=== PATIENT | female | born 1985 | race Caucasian/White ===

== ENCOUNTER 2016-08-07 19:13 | Emergency (ER) | payer BC ==
[2016-08-07] MEDS ORDERED: predniSONE TAB* 20 MG PO ONE (19:16)
[2016-08-07] MEDS ORDERED: Ondansetron ODT TAB* 4 MG ONE (19:16)
[2016-08-07] MEDS ORDERED: EPINEPHrine AMP 1 MG/ML IM ONE (19:16)
[2016-08-07] MEDS ORDERED: Ondansetron ODT TAB* 4 MG PO ONE (19:17)
[2016-08-07] MEDS ORDERED: methylPREDNISolone SOD SUCC* 125 MG 2 ML VIAL IM ONE (19:24)
[2016-08-07] MEDS ORDERED: Metoclopramide IV* 5 MG/ML 2 ML VIAL IV ONE (19:43)
[2016-08-07] MEDS ORDERED: NS 0.9% 1000 ML* 1,000 ML IV SCH (19:45)
[2016-08-07] MEDS ORDERED: Ketorolac INJ* 30 MG/ML 1 ML VIAL IV PUSH ONE (19:50)
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
[2016-08-07 20:45] VITALS: BP 107/67
== END 2016-08-07 21:00 | disposition home or self-care (01) ==
LOC: UCEAST 19:13
DX: T78.3XXA Angioneurotic edema, initial encounter (principal); T39.8X5A Adverse effect of other nonopioid analgesics and antipyretics, not elsewhere classified, initial encounter; Y92.9 Unspecified place or not applicable; G43.909 Migraine, unspecified, not intractable, without status migrainosus; Z88.6 Allergy status to analgesic agent; Z88.5 Allergy status to narcotic agent; Z88.0 Allergy status to penicillin; Z88.2 Allergy status to sulfonamides
CPT/HCPCS: 96360; 96372; 96374; 96375; 99212; G0463; J0171; J1885; J2930; J7512

== ENCOUNTER 2016-09-13 18:16 | Emergency (ER) | payer BC ==
[2016-09-13 19:06] VITALS: BP 111/71
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
== END 2016-09-13 19:35 | disposition home or self-care (01) ==
LOC: UCEAST 18:16
DX: J02.9 Acute pharyngitis, unspecified (principal); Z88.5 Allergy status to narcotic agent; Z88.0 Allergy status to penicillin
CPT/HCPCS: 87651; 99211; G0463

== ENCOUNTER 2016-12-19 19:09 | Emergency (ER) | payer BC ==
[2016-12-19 19:15] VITALS: BP 108/67
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
== END 2016-12-19 19:47 | disposition home or self-care (01) ==
LOC: UCEAST 19:09
DX: R30.0 Dysuria (principal); R35.0 Frequency of micturition; R39.15 Urgency of urination; F17.290 Nicotine dependence, other tobacco product, uncomplicated
CPT/HCPCS: 81003; 87086; 99212; G0463

== ENCOUNTER 2017-08-01 09:17 | Emergency (ER) | payer SELFPAY ==
[2017-08-01 09:44] VITALS: BP 118/73
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
--- NOTE | 2017-08-01 11:27 | UC ---
González Guerra Elizabeth, scribed for Daria Tolliver DO on 08/01/17 at 1004 . Hand/Wrist HPI - HPI Summary HPI Summary: The patient is a 32 year old female complaining of finger pain after smashing digits 3 and 4 of her right hand in a door. She rates the pain 5/10. The patient additionally complains of some numbness in her fingers and bruising under the nail. The patient denies fever, chills, nausea, and vomiting. - History Of Current Complaint Chief Complaint: UCUpperExtremity Stated Complaint: FINGER INJURY Time Seen by Provider: 08/01/17 09:41 Hx Obtained From: Patient Hx Last Menstrual Period: murania Onset/Duration: Sudden Onset, Still Present Severity Currently: Mild Pain Intensity: 5 Character Of Pain: Throbbing Aggravating Factor(s): Movement - pressure Alleviating Factor(s): Nothing Associated Signs And Symptoms: Positive: Bruising, Numbness/Tingling. Negative : Fever - Allergies/Home Medications Allergies/Adverse Reactions: Allergies Allergy/AdvReac Type Severity Reaction Status Date / Time acetaminophen [From Vicodin] Allergy Vomiting Verified 08/01/17 09:47 codeine Allergy Vomiting Verified 08/01/17 09:47 hydrocodone [From Vicodin] Allergy Vomiting Verified 08/01/17 09:47 latex Allergy Rash Verified 08/01/17 09:47 morphine Allergy See Comment Verified 08/01/17 09:47 ondansetron Allergy See Comment Verified 08/01/17 09:48 [From Zofran (as hydrochloride)] Penicillins Allergy Hives Verified 08/01/17 09:47 Sulfa (Sulfonamide Allergy Fever Verified 08/01/17 09:47 Antibiotics) sumatriptan [From Imitrex] Allergy See Comment Verified 08/01/17 09:47 tramadol Allergy See Comment Verified 08/01/17 09:47 PMH/Surg Hx/FS Hx/Imm Hx - Additional Past Medical History Additional PMH: FIBROMYALGIA Previously Healthy: No - Surgical History Surgical History: Yes Surgery Procedure, Year, and Place: 07/24/11 . 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 2011 WISDOM TEETH - Family History Known Family History: Positive: Other - MIGRAINE, COLITIS Negative: Diabetes - Social History Alcohol Use: Rare Substance Use Type: None Smoking Status (MU): Light Every Day Tobacco Smoker Type: Shant Cessation Counseling: Patient Advised to Stop Review of Systems Constitutional: Other - NEGATIVE FEVER, NEGATIVE CHILLS Skin: Bruising - BRUISING AROUND NAILS Gastrointestinal: Other - NEGATIVE NAUSEA, NEGATIVE VOMITING Neurological: Numbness - Numbness at the tip of the 4th digit of right hand All Other Systems Reviewed And Are Negative: Yes Physical Exam - Summary Physical Exam Summary: Appearance: Well-Appearing, No Pain Distress, Well-Nourished Eyes: conjunctiva clear, no discharge ENT: Hearing grossly normal, no muffled/hoarse voice. Hearing grossly normal, normal voice. Neck: Normal, Supple Respiratory/Lung Sounds: Lungs clear, Normal breath sounds, No respiratory distress, No accessory muscle use Cardiovascular: RRR, No murmur Musculoskeletal: Subungual hematoma under 3rd fingernail of right hand, minor abrasion and mild bruising around nail bed of finger 4 of right hand. tender to palpation over the dis phalanx of the 3rd and 4th finger Neurological: Alert, muscle tone normal Psychiatric:Normal, age appropriate behavior Skin: Normal, Warm, Dry, Normal color Triage Information Reviewed: Yes Vital Signs: Initial Vital Signs Temp 98.1 F 08/01/17 09:41 Pulse 80 08/01/17 09:41 Resp 18 08/01/17 09:41 BP 118/73 08/01/17 09:41 Pulse Ox 100 08/01/17 09:41 Vital Signs Reviewed: Yes Procedures - Nail Trepanation Method of Drainage: nail cauterized Sterile Dressing Applied: Yes Finger Splint: No Diagnostics - Radiology 3rd & 4th right fingers X-ray Xray Interpretation: No Acute Changes - NO FRACTURES NOTED Radiology Interpretation Completed By: ED Physician Hand/Wrist Course/Dx - Course Course Of Treatment: The patient is a 32 year old female complaining of finger pain and bruising after smashing digits 3 and 4 of her right hand in a door. Physical exam reveals a subungual hematoma under 3rd fingernail of right hand, minor abrasion and mild bruising around nail bed of finger 4 of right hand. In the [facility] course, trepanation of the 3rd fingernail of the right hand was performed. Patient will be discharged with prescription for Keflex and follow up from PCP. The patient is agreeable with this plan. Medications reviewed. Allergies reviewed. The patient has been encouraged to quit smoking. - Differential Dx/Diagnosis Provider Diagnoses: subungual hematoma Discharge - Discharge Plan Condition: Stable Disposition: HOME Prescriptions: Cephalexin CAP* [Keflex CAP*] 500 mg PO BID #20 cap Patient Education Materials: Subungual Hematoma (ED), Paronychia (ED), Contusion in Adults (ED), Warm Compress or Soak (ED) Referrals: Rachel Reddy BUSINESS APPLICATIONS SPECIALIST [Primary Care Provider] - If Needed Additional Instructions: CEPHALEXIN: The antibiotic you've been prescribed is a member of the cephalosporin class. This type of antibiotic covers a wide variety of infections, including those of the skin, lungs, and urinary tract. It's useful for staph infections. This antibiotic is slightly similar to the penicillin family. In rare cases , a person who is allergic to penicillin will also be allergic to this medication. If you have had a severe allergic reaction to penicillin, and have not taken this antibiotic since that time, notify your doctor. Antibiotics which cover many germs ("broad spectrum" antibiotics) are more likely to cause diarrhea or "yeast" infections. Women prone to vaginal yeast problems may suffer an attack after taking this antibiotic. In infants, oral thrush (white spots "stuck" on the cheek) or yeast diaper rash may result. See your doctor if these problems occur. Call at once if you develop itching, hives , shortness of breath, or lightheadedness. ANYTIME YOU TAKE AN ANTIBIOTIC, IT IS IMPORTANT TO REPLENISH THE BODY'S SUPPLY OF "GOOD BACTERIA." YOU CAN GET GOOD BACTERIA FROM HIGH QUALITY CULTURED FOODS SUCH LOCAL YOGURT, SOUR KRAUT, JERED MUKESH, NATURALLY FERMENTED PICKLES AND PROBIOTIC DRINKS. YOU CAN ALSO GET GOOD BACTERIA FROM A PROBIOTIC SUPPLEMENT. The documentation as recorded by the González sheehan Elizabeth accurately reflects the service I personally performed and the decisions made by me, Daria Tolliver DO.
== END 2017-08-01 10:55 | disposition home or self-care (01) ==
LOC: UCEAST 09:17
DX: S60.131A Contusion of right middle finger with damage to nail, initial encounter (principal); S60.141A Contusion of right ring finger with damage to nail, initial encounter; W23.0XXA Caught, crushed, jammed, or pinched between moving objects, initial encounter; Y93.9 Activity, unspecified; Y92.9 Unspecified place or not applicable; M79.7 Fibromyalgia; Z88.5 Allergy status to narcotic agent; Z88.0 Allergy status to penicillin; Z88.2 Allergy status to sulfonamides; Z88.8 Allergy status to other drugs, medicaments and biological substances; Z88.6 Allergy status to analgesic agent; Z91.040 Latex allergy status; F17.210 Nicotine dependence, cigarettes, uncomplicated
CPT/HCPCS: 11740; 73140; 99212; G0463

== ENCOUNTER 2018-02-24 18:43 | Emergency (ER) | payer OTHER ==
--- OUTSIDE RECORDS SUMMARY | 2018-02-24 19:14 | XMS REPORT ---
:1985 External Reference #:[id number] Author Organization [facility] Address [address] [place] [address] Phone [phone] Care Team Providers Name Role Phone Selene Chau Care Team Information [facility] Aides Teacher Unavailable Selene Chau Primary Care Physician Unavailable Payers Type Date Identification Numbers Payment Provider Subscriber Commercial Policy Number: [id number] [facility] Plan Rebekah Cao PayID: [id number] [address] [place] [address] Problems Date Description Provider Status Onset: 03/06/2013 Myalgia & Myositis Unspec Eliceo Coates M.D. Active Family History Date Family Member(s) Problem(s) Comments General No early myocardial infarction or cerebrovascular accident, no colon or breast cancer Father Hypertension Mother Migraine Mother Colitis Ulcerative First Sister Bipolar Disorder First Sister Bulemia First Sister diverticulitis Second Sister Bipolar Disorder Second Sister Migraine Paternal Grandmother paternal gm chron's Social History Type Date Description Comments Marital Status Patient has a significant other Living Situation Lives with son General ic and cmc Cigarette Use Former Cigarette Smoker since son born ETOH Use Rare Smoking Patient has never smoked Exercise Type/Frequency Current Exercises regularly Allergies, Adverse Reactions, Alerts Date Description Reaction Status Severity Comments 12/06/2008 Augmentin Hives active Hives 12/06/2008 Morphine Sulfate active Migraine 12/06/2008 Lactose active 02/14/2013 Codeine gi upset active 02/14/2013 Penicillin diarrhea active 02/14/2013 Sulfa rash/fever active 03/06/2013 Latex rash active 10/03/2013 Tramadol active 08/07/2016 Sumatriptan active rash Medications Medication Date Status Form Strength Qnty SIG Indications Ordering Provider Cymbalta 02/[address] 30mg 90cap 1 by mouth Part s once a day [facility], [facility] Ondansetron 01/21 Active Tablets 4mg 40tab 1-2 by mouth Selene L. HCL s every 4-6h Kandi, as needed M.D. nausea Butalbital/Wilberto 08/21 Active Capsules 50-300-40 60cap 1-2 by mouth R51 Rachel taminophen/Caf /2016 mg s every 6 [facility], feine hours [facility] Lyrica 12/19 Active Capsules 100mg 120ca 1 by mouth M79.1 Selene L. ps four times a , day M.D. Mirena Active IUD 20mcg/24H Unknown /0000 R Multivitamin Active Tablets 1 by mouth Unknown Adult /0000 every day Gabapentin 01/21 Hx Capsules 100mg 300ca 1 to 4 Selene L. /2017 ps capsules Kandi, - four times M.D. 02/04 daily. /2017 Cymbalta 12/[address] 20mg 90cap 1 po daily Part s [facility], - SPEECH LANGUAGE PATHOLOGIST ASSISTANT 02/10 Ciprofloxacin 11/26 Hx Solution 0.3% 5ml 1 drops in H16.102 Cassandra C. HCL left eye Rey, - every 2 [employer]EN[employer] 02/10 hours awake until follow-up with ophthalmolog y Azithromycin 09/15 Hx Tablets 250mg 6tabs 2 tabs /2016 today, then [place], - 1 tab daily M.D. 12/23 for next days Propranolol 09/04 Hx Caps ER 80mg 30cap 1 by mouth G43.009 Dorothea HCL ER /2016 24HR s every day [place], - M.D. 07/21 Sumatriptan 07/31 Hx Tablets 25mg 9tabs 1 by mouth R51 Rachel Succinate at onset of [facility], - migraine, SPEECH LANGUAGE PATHOLOGIST ASSISTANT 08/07 may if migraine not 100% gone in 4 hours, by mouth Gabapentin 12/04 Hx Capsules 100mg 45cap take 1 M79.1 s capsule at [facility], - bedtime SPEECH LANGUAGE PATHOLOGIST ASSISTANT 01/02 every night /2015 by mouth may add 1 by mouth in morning Soma 06/22 Hx Tablets 250mg 60tab one tab by 724.2 s mouth three [facility], - times a day SPEECH LANGUAGE PATHOLOGIST ASSISTANT 12/04 as needed for pain Lyrica 05/21 Hx Capsules 75mg 60cap 1 by mouth s twice a day [facility], - SPEECH LANGUAGE PATHOLOGIST ASSISTANT 12/19 Lyrica 05/21 Hx Capsules 25mg 30cap 1 po qd s [facility], - SPEECH LANGUAGE PATHOLOGIST ASSISTANT 07/09 Buspirone HCL 04/16 Hx Tablets 5mg 60tab 1 by mouth 300.00 s twice a day [facility], - SPEECH LANGUAGE PATHOLOGIST ASSISTANT 05/21 Lorazepam 03/16 Hx Tablets 0.5mg 40tab 1 by mouth 300.00 s three a day [facility], - as needed SPEECH LANGUAGE PATHOLOGIST ASSISTANT 04/16 anxiety Lidocaine 01/30 Hx Patches 5% 30uni apply to 724.2 Moncho Guaman ts affected M.D. - area for 12 03/16 hours and then off for 12 hours. use as directed Meloxicam 10/03 Hx Tablets 7.5mg 30tab 1 po qd 724.2 Eliceo Owen. s Jerome Coates M.D. 12/20 Physical 10/03 Hx 1unit treatment 724.2 Eliceo Tahmina s and Jaxon, - evaluation M.D. 12/20 of low back pain, scoliosis Soma 09/28 Hx Tablets 250mg 60tab one tab po 724.2 Eliceo Owen. s tid as Jaxon, - needed for M.D. 12/20 pain Tramadol HCL 09/25 Hx Tablets 50mg 40tab one tab po 724.2 Eliceo Owen. s every 6 Jaxon, - hours prn M.D. 09/28 pain /2013 Soma 09/08 Hx Tablets 350mg 30tab 1 q every 6 Moncho Guaman s hours as M.D. - needed for 09/24 muscle spasm Medrol Dosepak 09/07 Hx Tablets 4mg 1pack use as 724.2 Eliceo . directed Jerome Coates M.D. 09/24 Lyrica 07/10 Hx Capsules 75mg 60cap 1 by mouth s twice a day Jerome Reddy 05/21 Lyrica 02/14 Hx Capsules 25mg 21cap 1 po tid s Tha - Jaci-C 02/21 Lyrica 02/14 Hx Capsules 50mg 60cap 1 po bid, s istop ref# Jaxon, - [id number] M.DTahmina 07/10 No Active 12/22 Hx Unknown Medications /2012 - 02/14 No Active 12/20 Hx Unknown Medications /2012 - 12/20 Note 12/20 Hx pt was seen in this Tha - office Jaci-C 12/22 today- al exam within normal limits, pt is healthy. No contraindica tions to present employ Keflex 08/13 Hx Capsules 250mg 30cap 1 po tid x Charmaine s 10 days Jerome Rivero-Dl 12/19 Clindamycin 11/01 Hx Capsules 300mg 30cap one tab po 682.9 Eliceo A. s tid for ten Jaxon - rachel Mcnair 12/19 Cephalexin 10/16 Hx Tablets 250mg 30tab 1 po tid 525.19 Fenton A. Jerome Peñaloza M.D. 11/01 Naproxen 10/16 Hx Tablets 500mg 30tab 1 po bid prn 525.19 Eliceo A. Jerome Peñaloza M.D. 11/01 Loratadine 09/22 Hx Tablets 10mg 10tab 1 po qd 382.9 Fenton A. Jerome Peñaloza M.D. 10/16 Azithromycin 05/21 Hx Tablets 250mg 6tabs 2 po today 462 Eliceo A. and 1 po x 4 Jaxon - rachel Mcnair 10/16 Note For Work 05/21 Hx please Eliceo . excuse from Jaxon, - work today M.DTahmina 09/22 and tomorr due to illness Diflucan 10/02 Hx Tablets 150mg 3tabs 1 po qd maricruz Fonseca 05/21 M.D. Mycolog-II 10/02 Hx Cream 30gm apply to Rachel /2010 affected von - area bid Raymundo, 05/21 M.D. Astelin 08/15 Hx Solution 137mcg/Sp 1Mdi 1-2 sprays 465.9 Selene L. ray each nostril Kandi, - bid M.D. 10/02 Tessalon 08/15 Hx Capsules 100mg 90cap 1 po tid 465.9 Selene L. Perl s Kandi, - M.D. 10/02 Nasonex 08/15 Hx Suspension 50mcg/Act 1unit 1 spray each 465.9 Selene L. s nostril Kandi, - twice daily M.D. 10/02 Note For Work 08/05 Hx please Eliceo excuse from Jaxon, - work M.D. 08/15 07/31-08/04 due to illness thanks Azithromycin 07/31 Hx Tablets 250mg 9tabs 2 po for 462 Eliceo . three days Jaxon, - and 1 po x 3 M.D. Bupropion HCL 12/06 Hx Tablets ER 150mg 60tab one tab 305.1 Fenton A. ER 12HR s daily for Jaxon, - three days M.D. 07/31 and then Clindamycin Hx Capsules 150mg 21cap 1 po tid Unknown HCL /0000 s - 11/01 Percocet Hx Tablets 5-325mg 80tab 1-2 tabs po Unknown /0000 s every 6 - hours prn 11/01 pain Doxycycline Hx Tablets 100mg 2tabs take 2 pills Unknown Hyclate /0000 - 12/20 Vitamin B /00 Hx Tablets 1 po qd Unknown Complex /0000 - 03/16 Immunizations CPT Code Status Date Vaccine Lot # [id number] Given 02/10/2018 Influenza Vac, Quadrivalent, Slit Virus, Im [id number] Vital Signs Date Vital Result Comment 02/10/2018 BP Systolic 110 mmHg BP Diastolic 74 mmHg Heart Rate 72 /min Body Temperature 97.9 F Respiratory Rate 16 /min Height 60.5 inches 5'0.50" Weight 141.00 lb BMI (Body Mass Index) 27.1 kg/m2 12/01/2017 BP Systolic 110 mmHg BP Diastolic 70 mmHg Heart Rate 68 /min Body Temperature 98.3 F Respiratory Rate 16 /min Height 60.5 inches 5'0.50" Weight 135.00 lb BMI (Body Mass Index) 25.9 kg/m2 11/26/2017 BP Systolic 102 mmHg BP Diastolic 72 mmHg Heart Rate 80 /min Body Temperature 98.1 F Height 60.5 inches 5'0.50" Weight 135.00 lb BMI (Body Mass Index) 25.9 kg/m2 10/20/2017 BP Systolic 110 mmHg BP Diastolic 68 mmHg Heart Rate 84 /min Body Temperature 97.9 F Respiratory Rate 16 /min Height 60.5 inches 5'0.50" Weight 134.12 lb BMI (Body Mass Index) 25.8 kg/m2 07/21/2017 BP Systolic 110 mmHg BP Diastolic 64 mmHg Heart Rate 84 /min Body Temperature 97.3 F Respiratory Rate 18 /min Height 60.5 inches 5'0.50" Weight 136.00 lb BMI (Body Mass Index) 26.1 kg/m2 09/04/2016 BP Systolic 110 mmHg BP Diastolic 60 mmHg Heart Rate 76 /min Body Temperature 99.2 F Respiratory Rate 16 /min Height 60.5 inches 5'0.50" Weight 138.50 lb BMI (Body Mass Index) 26.6 kg/m2 08/21/2016 BP Systolic 120 mmHg BP Diastolic 60 mmHg Heart Rate 96 /min Body Temperature 98.6 F Height 60.5 inches 5'0.50" Weight 138.50 lb BMI (Body Mass Index) 26.6 kg/m2 07/31/2016 BP Systolic 94 mmHg BP Diastolic 62 mmHg Heart Rate 76 /min Body Temperature 98.7 F Respiratory Rate 16 /min Height 60.5 inches 5'0.50" Weight 139.25 lb BMI (Body Mass Index) 26.7 kg/m2 01/03/2016 BP Systolic 118 mmHg BP Diastolic 70 mmHg Heart Rate 72 /min Body Temperature 98.7 F Respiratory Rate 18 /min Height 60.5 inches 5'0.50" Weight 130.00 lb BMI (Body Mass Index) 25.0 kg/m2 06/10/2015 BP Systolic 110 mmHg BP Diastolic 64 mmHg Heart Rate 80 /min Body Temperature 97.7 F Respiratory Rate 16 /min Height 60.5 inches 5'0.50" Weight 129.00 lb BMI (Body Mass Index) 24.8 kg/m2 12/04/2014 BP Systolic 100 mmHg BP Diastolic 60 mmHg Heart Rate 80 /min Body Temperature 98.1 F Respiratory Rate 16 /min Height 60.5 inches 5'0.50" Weight 128.00 lb BMI (Body Mass Index) 24.6 kg/m2 07/09/2014 BP Systolic 104 mmHg BP Diastolic 62 mmHg Heart Rate 96 /min Body Temperature 98.2 F Respiratory Rate 16 /min Height 60.5 inches 5'0.50" Weight 134.00 lb BMI (Body Mass Index) 25.7 kg/m2 05/21/2014 BP Systolic 110 mmHg BP Diastolic 68 mmHg Heart Rate 80 /min Body Temperature 97.5 F Respiratory Rate 18 /min Height 60.5 inches 5'0.50" Weight 132.00 lb BMI (Body Mass Index) 25.4 kg/m2 04/16/2014 BP Systolic 118 mmHg BP Diastolic 70 mmHg Heart Rate 76 /min Body Temperature 99.0 F Respiratory Rate 18 /min Height 60.5 inches 5'0.50" Weight 134.00 lb BMI (Body Mass Index) 25.7 kg/m2 03/16/2014 BP Systolic 110 mmHg BP Diastolic 68 mmHg Heart Rate 80 /min Body Temperature 97.4 F Respiratory Rate 16 /min Height 60.5 inches 5'0.50" Weight 134.00 lb BMI (Body Mass Index) 25.7 kg/m2 01/30/2014 BP Systolic 102 mmHg BP Diastolic 78 mmHg Heart Rate 78 /min Body Temperature 98.0 F Respiratory Rate 15 /min Height 60.5 inches 5'0.50" Weight 133.00 lb BMI (Body Mass Index) 25.5 kg/m2 12/20/2013 BP Systolic 122 mmHg BP Diastolic 68 mmHg Heart Rate 102 /min Body Temperature 99.1 F Respiratory Rate 16 /min Height 60.5 inches 5'0.50" Weight 132.25 lb BMI (Body Mass Index) 25.4 kg/m2 10/03/2013 BP Systolic 122 mmHg BP Diastolic 70 mmHg Heart Rate 72 /min Body Temperature 98.8 F Respiratory Rate 16 /min Height 60.5 inches 5'0.50" Weight 129.00 lb BMI (Body Mass Index) 24.8 kg/m2 09/25/2013 BP Systolic 92 mmHg BP Diastolic 62 mmHg Heart Rate 90 /min Body Temperature 96.8 F Height 60.5 inches 5'0.50" Weight 133.25 lb BMI (Body Mass Index) 25.6 kg/m2 09/07/2013 BP Systolic 116 mmHg BP Diastolic 70 mmHg Heart Rate 80 /min Body Temperature 98.9 F Respiratory Rate 16 /min Height 60.5 inches 5'0.50" Weight 134.00 lb BMI (Body Mass Index) 25.7 kg/m2 07/10/2013 BP Systolic 102 mmHg BP Diastolic 68 mmHg Heart Rate 76 /min Body Temperature 97.8 F Respiratory Rate 14 /min Height 60.5 inches 5'0.50" Weight 136.00 lb BMI (Body Mass Index) 26.1 kg/m2 03/06/2013 BP Systolic 110 mmHg BP Diastolic 68 mmHg Heart Rate 88 /min Body Temperature 99.6 F Respiratory Rate 17 /min Height 60.5 inches 5'0.50" Weight 137.00 lb BMI (Body Mass Index) 26.3 kg/m2 02/14/2013 BP Systolic 100 mmHg BP Diastolic 70 mmHg Heart Rate 88 /min Body Temperature 97.6 F Respiratory Rate 16 /min Height 60.5 inches 5'0.50" Weight 139.00 lb BMI (Body Mass Index) 26.7 kg/m2 12/20/2012 BP Systolic 102 mmHg BP Diastolic 52 mmHg Heart Rate 96 /min Body Temperature 98.2 F Height 60.5 inches 5'0.50" Weight 139.25 lb BMI (Body Mass Index) 26.7 kg/m2 11/01/2010 BP Systolic 100 mmHg BP Diastolic 70 mmHg Heart Rate 72 /min Body Temperature 98.4 F Height 60.5 inches 5'0.50" Weight 129.00 lb BMI (Body Mass Index) 24.8 kg/m2 10/16/2010 BP Systolic 120 mmHg BP Diastolic 84 mmHg Heart Rate 90 /min Body Temperature 98.3 F Height 60.5 inches 5'0.50" Weight 124.00 lb BMI (Body Mass Index) 23.8 kg/m2 09/22/2010 BP Systolic 94 mmHg BP Diastolic 66 mmHg Heart Rate 96 /min Body Temperature 97.9 F Height 60.5 inches 5'0.50" Weight 126.00 lb BMI (Body Mass Index) 24.2 kg/m2 05/21/2010 BP Systolic 104 mmHg BP Diastolic 60 mmHg Heart Rate 76 /min Body Temperature 99.4 F Height 60.5 inches 5'0.50" Weight 128.00 lb BMI (Body Mass Index) 24.6 kg/m2 10/02/2009 BP Systolic 102 mmHg BP Diastolic 64 mmHg Heart Rate 99.3 /min Body Temperature 80.0 F Height 60.5 inches 5'0.50" Weight 132.00 lb BMI (Body Mass Index) 25.4 kg/m2 08/15/2009 BP Systolic 100 mmHg BP Diastolic 68 mmHg Heart Rate 100 /min Body Temperature 98.1 F Weight 134.00 lb 07/31/2009 BP Systolic 110 mmHg BP Diastolic 80 mmHg Heart Rate 65 /min Body Temperature 102.0 F Weight 138.00 lb 12/06/2008 BP Systolic 100 mmHg BP Diastolic 60 mmHg Heart Rate 64 /min Body Temperature 98.3 F Height 60.5 inches 5'0.50" Weight 136.00 lb BMI (Body Mass Index) 26.1 kg/m2 Results Test Date Test Result H/L Range Note Laboratory test 08/25/2017 Cytology SEE RESULT BELOW 1 finding GC/Chlamydia 04/13/2017 Chlamydia Negative Negative Amplified Rna trachomatis Rna Neisseria gonorrhoeae (GC) Rna Negative Negative Laboratory test 12/19/2016 Urine Culture And SEE RESULT BELOW 2, 3 finding Sensitivities Laboratory test 08/29/2016 C Difficile PCR SEE RESULT BELOW 4 finding Laboratory test 08/26/2016 O&P: Giardia/Cryptospor SEE RESULT BELOW 5 finding Screen Complete Blood Count 07/31/2016 WBC 6.0 x10^3/UL 3.6-9.6 RBC 3.99 x10^6/UL 3.90-5.70 HGB 12.6 g/dL 12.1-17.2 HCT 37 % 36-50 MCV 93.0 fL 82.2-97.4 MCH 31.6 pg 27.6-33.3 MCHC 33.9 g/dL 33.0-35.5 RDW 12.5 % 11.6-13.7 PLT 339 x10^3/UL 150-400 MPV 6.7 fL Low 7.4-10.4 Gran # 3.8 x10^3/UL 1.5-7.2 Lymph# 1.9 x10^3/UL 0.7-4.9 Bath# 0.3 x10^3/UL 0.1-0.9 Gran % 61.0 % 42.2-75.2 Lymph % 33.2 % 20.5-51.1 Bath% 5.8 % 1.7-9.3 Comprehensive Metabolic Prof 07/31/2016 Sodium 135 mEq/L 134-149 Potassium 3.8 mEq/L 3.6-5.5 Chloride 98 mEq/L 94-112 Carbon Dioxide 26 mEq/L 21-32 Glucose 101 mg/dL 70-105 BUN 6 mg/dL 6-26 Creatinine 0.7 mg/dL 0.6-1.4 BUN/Creat Ratio 8.6 CALC 8.0-36.0 Calcium 9.1 mg/dL 8.6-10.2 Total Protein 7.2 g/dL 6.4-8.3 Albumin 4.2 g/dL 3.8-5.5 Globulin 3.0 g/dL 2.0-4.8 A/G Ratio 1.4 CALC 0.6-2.3 Alk. Phosphatase 66 U/L 30-110 Alt (SGPT) 10 U/L 7-35 Ast (Sgot) 17 U/L 5-34 Total Bilirubin 0.4 mg/dL 0.2-1.3 GFR Non- >60 ml/min/1.73m^ >=60 GFR >60 ml/min/1.73m^ >=60 Laboratory test finding 07/31/2016 Free T4 1.01 ng/dL 0.75-1.54 TSH 1.00 mIU/L 0.50-6.00 Basic Metabolic Profile 03/16/2014 Sodium 140 mEq/L 134-149 Potassium 3.5 mEq/L Low 3.6-5.5 6 Chloride 104 mEq/L 94-112 Carbon Dioxide 26 mEq/L 21-32 Glucose 95 mg/dL 70-105 BUN 9 mg/dL 6-26 Creatinine 0.6 mg/dL 0.6-1.4 BUN/Creat Ratio 15.0 CALC 8.0-36.0 Calcium 9.8 mg/dL 8.6-10.2 Laboratory test finding 03/16/2014 Free T3 2.89 pg/mL 2.00-4.90 Free T4 1.20 ng/dL 0.75-1.54 TSH 0.90 mIU/L 0.50-6.00 Complete Blood Count 03/16/2014 WBC 6.4 x10^3/UL 3.6-9.6 RBC 3.85 x10^6/UL Low 3.90-5.70 HGB 12.6 g/dL 12.1-17.2 HCT 36 % 36-50 MCV 94.0 fL 82.2-97.4 MCH 32.7 pg 27.6-33.3 MCHC 35.0 g/dL 33.0-35.5 RDW 11.5 % Low 11.6-13.7 PLT 259 x10^3/UL 150-400 MPV 7.2 fL Low 7.4-10.4 Gran # 4.3 x10^3/UL 1.5-7.2 Lymph# 1.9 x10^3/UL 0.7-4.9 Bath# 0.2 x10^3/UL 0.1-0.9 Gran % 64.6 % 42.2-75.2 Lymph % 30.9 % 20.5-51.1 Bath% 4.5 % 1.7-9.3 Iron & Iron Binding Capacity 03/16/2014 Iron 105 g/dL 50-212 7 Unsaturated Iron Binding 232 g/dL 7 Total Iron Binding Capacity 337 g/dL 250-450 7 % Iron Saturation 31 % 15-55 7 Laboratory test finding 09/07/2013 Sed Rate ([facility]) 7mm CBC Electronic ([facility]) 09/07/2013 WBC 7.4 3.6-9.6 RBC 4.28 3.90-5.70 Hemoglobin (a/CMC/CTX) 13.8 g/dL 12.1 - 17.2 Hematocrit ([facility]/CTX) 39.8 % 36.1 - 50.3 Platelets 299 10^3/ul 150-400 Lymph% 32.7 % 17.0-48.0 Mixed% 5.4 Neutrophils % 61.9 Mean Corpuscular Vol 93 82.2-97.4 Mean Corpuscular Hemoglobin 32.3 27.6-33.3 Mean Corpuscular Hemo Concen 34.7 32.0-36.0 RDW 12.2 11.6-13.7 Mean Platelet Volume 7.9 5.5-11.0 Laboratory test finding 09/07/2013 C Reactive Protein < 1.00 mg/L < 5.00 8 Comp Metabolic Panel 09/07/2013 Sodium 138 mmol/L 133-145 Potassium 4.4 mmol/L 3.7-5.6 Chloride 101 mmol/L 101-111 Co2 Carbon Dioxide 27 mmol/L 22-32 Anion Gap 10 mmol/L 2-11 Glucose 95 mg/dL 70-100 Blood Urea Nitrogen 15 mg/dL 6-24 Creatinine 0.78 mg/dL 0.51-0.95 BUN/Creatinine Ratio 19.2 8-20 Calcium 9.5 mg/dL 8.6-10.3 Total Protein 7.2 g/dL 6.4-8.9 Albumin 4.9 g/dL 3.2-5.2 Globulin 2.3 g/dL 2-4 Albumin/Globulin Ratio 2.1 1-3 Total Bilirubin 0.40 mg/dL 0.2-1.0 Alkaline Phosphatase 69 U/L 34-104 Alt 10 U/L 7-52 Ast 14 U/L 13-39 Egfr Non- 89.3 >60 Egfr 114.8 >60 9 Urinalysis 08/26/2013 Urine Color Yellow Urine Appearance Clear Urine Specific [place] 1.009 Low 1.010-1.030 Urine Esterase Negative Negative Urine Nitrate Negative Negative Urine Urobilinogen Negative E.U./dL Negative Urine Protein Negative mg/dL Negative Urine pH 7.5 5-9 Urine Blood Negative Negative Urine Ketones Negative mg/dL Negative Urine Bilirubin Negative Negative Urine Glucose Negative mg/dL Negative Laboratory test finding 05/12/2013 Vitamin B12 314 pg/mL 180-914 TSH (Thyroid Stimulating Horm) 0.68 miu/mL 0.34-5.60 Cortisol 12.6 g/dL 10 C Reactive Protein < 0.5 mg/dL Less than 0.5 Celiac Panel 05/12/2013 Immunoglobulin A 315 mg/dL 61 - 356 Tissue Transglutaminase IgA Ab <1.2 U/mL 11 Celiac Interpretation See Comment 12 Hla B27 05/12/2013 Hla B27 Negative 13 Hla B27 Interp See Comment 14 Laboratory test finding 05/12/2013 Dorina Screen Negative Negative 15 Laboratory test finding 03/06/2013 Creatine Kinase 66 U/L 26-140 Bina Pattern & Titer 03/06/2013 Homogeneous Pattern 1:160 High Note: SEE NOTE 16 Laboratory test finding 03/06/2013 Antinuclear Abs, Ifa See patterns 17 Laboratory test finding 03/06/2013 Sed Rate 13 mm ([facility]rex) CBC Electronic ([facility]) 02/14/2013 WBC 7.1 3.6-9.6 RBC 4.42 3.90-5.70 Hemoglobin ([facility]/CMC/CTX) 13.9 g/dL 12.1 - 17.2 Hematocrit ([facility]/CMC/CTX) 41.7 % 36.1 - 50.3 Platelets 295 10^3/ul 150-400 Lymph% 30.4 20.5-51.1 Mixed% 4.4 Neutrophils % 65.2 Mean Corpuscular Vol 94 82.2-97.4 Mean Corpuscular Hemoglobin 31.5 27.6-33.3 Mean Corpuscular Hemo Concen 33.4 32.0-36.0 RDW 11.7 11.6-13.7 Mean Platelet Volume 7.2 6.5-11.0 Laboratory test finding 02/14/2013 Sed Rate (a/CMC/Centrex) 8mm Comprehensive Metabolic 02/14/2013 Albumin 5.0 g/dL 3.8-5.5 Prof Alk. Phos. 89 U/L 30-110 Alt (SGPT) 10 U/L 7-35 Ast (Sgot) 17 U/L 5-34 BUN 11 mg/dL 6-26 Calcium 9.7 mg/dL 8.6-10.2 Chloride 108 mEq/L 94-112 Creatinine 0.8 mg/dL 0.6-1.4 Carbon Dioxide 25 mEq/L 21-32 Glucose 97 mg/dL 70-105 Sodium 142 mEq/L 134-149 Total Bilirubin 0.5 mg/dL 0.2-1.3 Total Protein 7.3 g/dL 6.3-8.1 Potassium 4.3 mEq/L 3.6-5.5 Globulin 2.4 g/dL 2.0-4.8 A/G Ratio 2.1 Calc 0.6-2.3 BUN/Creat Ratio 13.5 Calc 8.0-36.0 Laboratory test 02/14/2013 TSH 1.01 mIU/L 0.50-6.00 finding Cytology 08/18/2012 Cy RUN DATE: <SEE NOTE> GC/Chlamydia Amplified 08/18/2012 GC/Chlamydia Rna (SEE NOTE) 19 Rna CBC No Diff 07/23/2011 White Blood Count 14.7 CUMM High 4.8-10.8 Red Cell Count 3.72 CUMM Low 4.2-5.4 Hemoglobin 11.8 g/dL Low 12.0-16.0 Hematocrit 34 % Low 35-47 Mean Corpuscular Volume 91 um3 79-97 Mean Corpuscular Hemoglob 32 pg High 27-31 Mean Corpuscular HGB Cone 35 g/dL 32-36 Redcell Distribution WDTH 13 % 10.5-15 Platelet Count 330 CUMM 150-450 Mean Platelet Volume 7.7 um3 7.4-10.4 Type & Screen 07/23/2011 Patient Blood Type O POSITIVE Antibody Screen NEGATIVE Urinalysis W/Microscopic 02/15/2011 Ua Color YELLOW Yellow Appearance-Urine CLEAR Clear Specific [place]-Ur 1.005 Low 1.010-1.030 Esterase-Urine 3+ Negative Nitrite POSITIVE Negative Imggizvsorci-Dr-STT NEGATIVE Negative Protein-Urine TRACE Negative PH-Urine 6.0 5-9 Blood-Urine 2+ Negative Ketones-Urine NEGATIVE Negative Bilirubin-Ur NEGATIVE Negative Glucose-Urine NEGATIVE Negative WBC-Urine TNTC 0-5 RBC-Urine 0-2 0-2 Epith Cells-Ur FEW None Bacteria-Urine 2+ None Urine Culture & Sensitivi 02/15/2011 Urine Culture ESCHERICHIA COLI 20 Sensitivi Sensitivities For Urine 02/15/2011 Ampicillin <=2 Culture Amikacin <=2 Ciprofloxacin <=0.25 Ceftriaxone <=1 Cefazolin <=4 Nitrofurantoin <=16 Gentamicin <=1 Imipenem <=1 Levofloxacin <=0.12 Trimeth-Sulfa <=20 Ceftazidime <=1 Tigecycline <=0.5 Laboratory test finding 05/21/2010 Throat - Beta Strep [facility] negative@48hrs Quickstrep NEGATIVE Negative Laboratory test finding 07/31/2009 Quickstrep NEG Negative Throat - Beta Strep Fma negative@48hrs 1 SEE RESULT BELOW Name: REEBKAH CAO : [address]: Shad Bowles MD Acct: [id number] Unit: [id number] AGE: 32 Location: [facility] Re08/25/17 SEX: F Status: REG REF SPEC: [id number] BRANDEN: 08/25/17-[address]: Shda Bowles MD REQ: [id number] RECD: 08/25/17 STATUS: ERVIN BASSETT DR: Rachel Reddy 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 Ectocervical/Endocervical Specimen Adequacy: Satisfactory of evaluation Transformation zone component identified Patient Information: HPV: High risk HPV RNA testing regardless of pap results. Actual Specimen Date: 08/25/17 Last Menstrual Date: 06/07/17 Date of Last Specimen: 06/01/16 Date Time Test Result Flag (u) Normal Range 08/25/17 1212 @ HPV RNA Negative Negative @ @ The high-risk HPV types detected by the assay include: 16, @ 18, 31, 33, 35, 39, 45, 51, 52, 56, 58, 59, 66, and 68. Signed (signature on file) Parmjit JOMAR Ramos (ASCP) 08/27 1002 This Pap test was evaluated with the assistance of the ThinPrep Test Imaging System. Due to cytologic findings at the finished carpet inspector microscope, comprehensive manual rescreening by a Pattern Maker may be required. The Pap Smear is a screening test designed to aid in the detection of premalignant and malignant conditions of the uterine cervix. It is not a diagnostic procedure and should not be used as the sole means of detecting cervical cancer. Both false- positive and false- negative reports do occur. Depending on your risk status, a Pap smear should be obtained and evaluated every 1-3 years. END OF REPORT DEPARTMENT OF PATHOLOGY, [address] [place] [address] Merrick Dewitt M.D. Director [facility] # [id number] 2 [id number] 3 SEE RESULT BELOW Name: REBEKAH CAO : [address]: Angelica Harrison MD Acct: [id number] Unit: [id number] AGE: 31 Location: [facility] Re12/19/16 SEX: F Status: DEP ER SPEC: [id number] BRANDEN: 12/19/16-[address] [facility] [address]: Angelica Harrison MD REQ: [id number] RECD: 12/20/16-142 STATUS: KEESHA BASSETT DR: Selene Chau MD _ SOURCE: URINE SPDESC: ORDERED: Urine Culture COMMENTS: [id number] Procedure Result Reported Site Urine Culture Final 12/21/16- 1223 ML No Growth (<1,000 CFU/mL) * ML - MAIN LAB ([facility]) . END OF REPORT * ML=Testing performed at Main Lab DEPARTMENT OF PATHOLOGY, [address] [place] [address] Merrick Dewitt M.D. Director CHRISTINE # [id number] 4 SEE RESULT BELOW Name: REBEKAH CAO : [address]: Lorenzo Stanley MD Acct: [id number] Unit: [id number] AGE: 31 Location: [facility] Re08/29/16 SEX: F Status: REG REF SPEC: [id number] BRANDEN: 08/29/[address] [facility] [address]: Lorenzo Stanley MD REQ: [id number] RECD: 08/29/16 STATUS: KEESHA BASSETT DR: Rachel Reddy [employer] _ SOURCE: STOOL SPDESC: ORDERED: Nemo bean PCR Procedure Result Reported Site Stool Specimen Description Final 08/29/16- 0907 ML Stool Color Brown Stool Form Nonformed Stool Consistency Pasty Mucoid C. difficile PCR Final 08/29/16- 56 ML Organism 1 027 Presumptive NEGATIVE Organism 2 Toxigenic C.diff NEGATIVE * ML - MAIN LAB ([facility]1) . END OF REPORT * ML=Testing performed at Main Lab DEPARTMENT OF PATHOLOGY, [address] [place] [address] Merrick Dewitt M.D. Director [facility] # [id number] 5 SEE RESULT BELOW Name: REBEKAH CAO : [address]: Rachel Reddy NP Acct: [id number] Unit: [id number] AGE: 31 Location: [facility] Re08/26/16 SEX: F Status: REG REF SPEC: [id number] BRANDEN: 08/26/16-[address] [facility] [address]: Rachel Reddy NP REQ: [id number] RECD: 08/26/16 STATUS: COMP _ SOURCE: STOOL SPDC: ORDERED: O P: Giar/Crypt Procedure Result Reported Site O P: Giardia/Cryptospor Screen Final 08/27/16- 1141 ML Organism 1 Neg Cryptosporidium/Giardia Giardia and cryptosporidium antigen testing performed by enzyme immunoassay. If patient is immunocompromised or has traveled to or is from a developing country, a full ova and parasite exam with microscopic (OPMIC) is recommended. All samples will be held one month in case full ova and parasite testing is requested. Contact the Microbiology Department at [phone]. TEST LIMITATIONS: As with all diagnostic procedures, the results obtained should be used in conjunction with other clinical information available the physician, including confirmation by another method. Negative results can occur in samples containing antigen below lower limits of detection of the assay. One negative specimen does not rule out the possibility of a parasitic infection. To improve detection it is recommended that three specimens be collected on separate days over a period of not more than seven days. The use of colonic washes, aspirates or other diluted sample types has not been established and could affect the performance of the assay. Stool samples contaminated with an oily or particulate base (eg. Barium, mineral oil etc.) could interfere with the test and are not recommended. CONTINUED ON NEXT PAGE * ML=Testing performed at Main Lab DEPARTMENT OF PATHOLOGY, [address] [place] [address] Merrick Dewitt M.D. Director [facility] # [id number] Patient: KILEYLIVA [id number] (Continued) Specimen: [id number] Collected: 08/26/16 Received: 08/26/16-1012 (Continued) Procedure Result Reported Site O P: Giardia/Cryptospor Screen Final (continued) 08/27/161140 * ML - MAIN LAB ([facility]) . END OF REPORT * ML=Testing performed at Main Lab DEPARTMENT OF PATHOLOGY, [address] [place] [address] Merrick Dewitt M.D. Director [facility] # [id number] 6 RESULTS VERIFIED BY REPEAT ANALYSIS 7 1SST 8 Acute inflammation: >10.00 9 Because ethnic data is not always readily available, this report includes an eGFR for both -Americans and non- Americans. The National Kidney Disease Education Program (NKDEP) does not endorse the use of the MDRD equation for patients that are not between the ages of 18 and 70, are , have extremes of body size, muscle mass, or nutritional status, or are non- or non-. According to the National Kidney Foundation, irrespective of diagnosis, the stage of the disease is based on the level of kidney function: Stage Description GFR(mL/min/1.73 m(2)) 1 Kidney damage with normal or decreased GFR 90 2 Kidney damage with mild decrease in GFR 60-89 3 Moderate decrease in GFR 30-59 4 Severe decrease in GFR 15-29 5 Kidney failure <15 (or dialysis) 10 AM Cortisol 8.7-22.4 PM Cortisol Less than 10 11 -- REFERENCE VALUE -- <4.0 (Negative) Test Performed by: [address] [place] [address] Electrical Contractor: Elias Arreguin III, M.D. 12 Negative serology. Celiac disease unlikely. However, approximately 10% of patients with celiac disease are seronegative. Also, patients who are already adhering to a gluten-free diet may be seronegative. If celiac disease is highly clinically suspected, consider HLA-DQ typing. Test Performed by: [facility] [address] Electrical Contractor: Elias Arreguin III, M.D. 13 -- REFERENCE VALUE -- Not Applicable 14 RESULT: HLA-B27 antigen was not detected. Method: Flow Cytometry Test Performed by: [facility] [address] Electrical Contractor: Elias Arreguin III, M.D. 15 The above DORINA screen is designed for the detection of antibodies to extractable nuclear antigen (DORINA) in human serum. It is a combination test for the detection of antibodies to MEDICAL DEVICE ENGINEER, Sm, SS-A (Ro), and SS-B (La) nuclear antigens. 16 A positive BINA result may occur in healthy individuals or be associated with a variety of diseases. See interpre- tation below: Pattern Antigen Detected Suggested Disease Association Homogeneous DNA(ds,ss,), High titers - SLE (Smooth) Histone Speckled Sm, MEDICAL DEVICE ENGINEER, SCL-70, SLE,MCTD,Scleroderma,Sjogrens SS-A/SS-B Nucleolar SCL-70, PM-1/SCL High titers Scleroderma Poly- myositis/Scleroderma Overlap Centromere Centromere PSS w/Crest syndrome variable 17 Negative <1:80 Borderline 1:80 Positive >1:80 18 RUN DATE: 08/19/12 [facility] LAB LIVE PAGE 1 RUN TIME: [address], [place] [address] Specimen Inquiry Name: KILEYREBEKAH Velasco : [address]: Kierra Connell NP Acct: [id number] Unit: [id number] AGE: 27 Location: [facility] Re08/18/12 SEX: F Status: REG REF SPEC: [id number] BRANDEN: 08/18/12-[address]: Kierra Connell NP REQ: [id number] RECD: 08/18/12761 STATUS: SOUT _ ORDERED: IMAGE ANALYSIS FINAL DIAGNOSIS Negative for Intraepithelial lesion or Malignancy A. Ectocervical/Endocervical Specimen Adequacy: Satisfactory of evaluation Transformation zone component not identified Patient Information: HPV: Thin Layer Pap Test only (NO HPV TESTING) Actual Specimen Date: 08/18/12 LMP If Unknown: unknown ?: N Post Menopausal?: N Hysterectomy?: N Previous Abnormal Pap Smears?:N Signed (signature on file) Nadia Tafoya JOMAR (ASCP) 08/19/12 1253 This Pap test was evaluated with the assistance of the ThinPrep Test Imaging System. Due to cytologic findings at the finished carpet inspector microscope, comprehensive manual rescreening by a Pattern Maker may be required. The Pap Smear is a screening test designed to aid in the detection of premalignant and malignant conditions of the uterine cervix. It is not a diagnostic procedure and should not be used as the sole means of detecting cervical cancer. Both false- positive and false- negative reports do occur. Depending on your risk status, a Pap smear shoudl be obtained and evaluated every 1-3 years. END OF REPORT * ML=Testing performed at Main Lab DEPARTMENT OF PATHOLOGY, [facility] [address] [place], [place] [address] Merrick Dewitt M.D. Director [facility] Permit #[id number] RUN DATE: 08/23/12 [facility] [place] [facility] LAB LIVE PAGE 1 RUN TIME: [address] [facility] [address] [place], [place] [address] Specimen Inquiry Name: REBEKAH CAO : [address]: Kierra Connell NP Acct: [id number] Unit: [id number] AGE: 27 Location: [facility] Re08/18/12 SEX: F Status: REG REF SPEC: [id number] BRANDEN: 08/18/12-[address]: Kierra Connell NP REQ: [id number] RECD: 08/18/12 STATUS: COMP _ SOURCE: AIME SPDESC: ORDERED: GC/Chlam RNA QUERIES: Medent Number [id number] Procedure Result Verified Site Chlamydia Trachomatis RNA Final 08/23/12- 1504 ML NEGATIVE for Chlamydia trachomatis rRNA GC (N. gonorrhoeae) RNA Final 08/23/12- 1505 ML NEGATIVE for Neisseria gonorrhoeae rRNA A negative result does not preclude the presence of a C. trachomatis or N. gonorrhoeae infection because results are dependent on adequate specimen collection, absence of inhibitors, and sufficient rRNA to be detected. Test results may be affected by improper specimen collection, improper storage, technical error, or specimen mixup. Limitations of the Procedure: The Aptima Combo 2 Assay is not intended for the evaluation of suspected sexual abuse or for other medico-legal indications. For those patients for whom a false positive result may have adverse psychosocial impact, the [facility] recommends retesting by a method using an alternate technology. Therapeutic failure or success cannot be determined with the Aptima Combo 2 Assay since nucleic acid may persist following appropriate antimicrobial therapy. Results from the Aptima Combo 2 Assay should be interpreted in conjunction with other laboratory and clinical data available to the clinican. CONTINUED ON NEXT PAGE * ML=Testing performed at Main Lab DEPARTMENT OF PATHOLOGY, [facility] [address] [place], [place] [address] Merrick Dewitt M.D. Director [facility] Permit #[id number] RUN DATE: 08/23/12 [facility] [place] [facility] LAB LIVE PAGE 2 RUN TIME: [address] [facility] [address] [place], [place] [address] Specimen Inquiry Patient: REBEKAH CAO [id number] (Continued) Specimen: [id number] Collected: 08/18/12-1031 Received: 08/18/12-1613 (Continued) Procedure Result Verified Site GC (N. gonorrhoeae) RNA Final (continued) 08/23/12- 1505 Performance characteristics for detecting C. trachomatis and N. gonorrhoeae are derived from high prevalence populations. Positive results in low prevalence populations should be interpreted carefully with the understanding that the likelihood of a false positive may be higher than a true positive. END OF REPORT * ML=Testing performed at Main Lab DEPARTMENT OF PATHOLOGY, [address] [place] [address] Merrick Dewitt M.D. Director [facility] Permit #[id number] 20 >100^>100,000 ORGANISMS/ML (MANY)^CCU Procedures Description No Information Encounters Type Date Location Provider CPT E/M Dx Office Visit 12/01/2017 9:30a [facility] Rachel Reddy, [facility] [address] M79.7 Office Visit 11/26/2017 4:15p [facility] Office Cassandra Le, [employer] [address] H16.102 Office Visit 10/20/2017 8:00a [facility] Rachel Reddy, [facility] [address] M79.7 G47.00 G43.009 Office Visit 07/21/2017 10:45a [facility] Office Rachel Reddy, [facility] [address] M79.7 G43.009 Z00.01 Office Visit 09/04/2016 4:40p [facility] Dorothea Liao M.D. 65342 G43.009 M79.7 Office Visit 08/21/2016 3:30p [facility] Office Rachel Reddy, [facility] [address] R51 K92.1 M79.7 Office Visit 07/31/2016 10:45a [facility] Rachel Reddy, [facility] [address] R51 M79.7 Office Visit 01/03/2016 1:30p [facility] Office Rachel Reddy, [facility] [address] G47.00 F43.0 M79.7 Office Visit 06/10/2015 9:30a [facility] Office Rachel Reddy, [facility] [address] M79.1 F41.9 Office Visit 12/04/2014 8:45a Main Office Rachel Reddy, [facility] [address] 729.1 Office Visit 07/09/2014 8:30a [facility] Office Rachel Reddy, [facility] [address]774 729.1 300.00 Office Visit 05/21/2014 8:00a [facility] Rachel Reddy, [facility] [address] 300.00 729.1 Office Visit 04/16/2014 10:30a [facility] Office Rachel Reddy, [facility] [address] 300.00 Office Visit 03/16/2014 2:00p [facility] Rachel Reddy, [facility] [address] 300.00 Office Visit 01/30/2014 11:40a [facility] Moncho Guaman M.D. 33312 724.2 Office Visit 12/20/2013 3:40p Main Office Moncho Guaman M.D. 10044 724.2 Office Visit 10/03/2013 2:50p [facility] Eliceo Coates M.D. 52688 724.2 Office Visit 09/25/2013 11:10a [facility] Office Eliceo Coates M.D. 07882 724.2 Office Visit 09/07/2013 3:00p Main Office Eliceo Coates M.D. 67352 724.2 729.1 Office Visit 07/10/2013 8:50a [facility] Office Eliceo Coates M.D. 77140 729.1 Office Visit 03/06/2013 11:40a [facility] Office Eliceo Coates M.D. 18012 729.1 Office Visit 02/14/2013 9:00a Main Office Lena LudwigJaci marie-C 52633 729.1 Office Visit 12/20/2012 9:15a [facility] Office Lena LudwigJaci marie-C 30371 V70.5 Office Visit 11/01/2010 11:00a Main Office Eliceo Coates M.D. 40778 682.9 Office Visit 10/16/2010 7:40p Main Office Eliceo Coates M.D. 32349 525.19 Office Visit 09/22/2010 10:20a [facility] Office Eliceo Coates M.D. 58125 382.9 Office Visit 05/21/2010 2:00p [facility] Office Eliceo Coates M.D. 68331 462 Office Visit 10/02/2009 1:20p Main Office Rachel Guillen 52626 616.10 Xu Office Visit 08/15/2009 2:30p [facility] Office Selene Chau M.D. 20505 465.9 305.1 Office Visit 07/31/2009 10:30a [facility] Office Eliceo Coates M.D. 39309 462 Office Visit 12/06/2008 9:00a Main Office Eliceo Coates M.D. 35047 729.1 305.1 Plan of Care Future Appointment(s):08/10/2018 4:30 pm - DAVID Clinton at [facility] Usxixr7502/22/2018 2:00 pm - Selene Chau M.D. at Main Mppqyz7802/10/2018 - Rachel Reddy, FNPM79.7 QuitgrbxmlsjS71.00 Insomnia, [id number] Encounter for immunizationAllNew Medication:Cymbalta 30 mgComments:~B_~U_ Medication Management~b_~u_ Patient Understands medications he 's taking? Yes No Are there Barriers to Adherence? Yes No Has the patient been asked about herbal supplements and therapies, and OTC meds? Yes No As always, we strongly encourage a healthy diet and makingphysical activity a part of your every day life. If you have questions about how or where to start, please contact the office.
[2018-02-24 20:15] LABS: ABS Basophils 0.1 10^3/ul (0-0.2); ABS Eosinophils 0.2 10^3/ul (0-0.6); ABS Lymphocytes 2.9 10^3/ul (1.0-4.8); ABS Monocytes 0.7 10^3/ul (0-0.8); ABS Neutrophils 5.3 10^3/ul (1.5-7.7); ABS Nucleated RBC 0 10^3/ul; Hematocrit 38 % (35-47); Hemoglobin 12.9 g/dl (12.0-16.0); Lymphocyte % 31.9 % (25-47); Mean Corpuscular HGB Conc 34 g/dl (31-36); Mean Corpuscular Hemoglobin 32 pg (27-31); Mean Corpuscular Volume 93 fL (80-97); Mean Platelet Volume 8.6 um3 (7.4-10.4); Nucleated Red Blood Cells % 0.1; Platelet Count 303 10^3/ul (150-450); Red Blood Count 4.05 10^6/ul (4.00-5.40); Red Cell Distribution Width 12 % (10.5-15); White Blood Count 9.2 10^3/ul (3.5-10.8)
[2018-02-24 20:23] LABS: Urine Appearance Clear; Urine Blood 1+ (Negative); Urine Color Straw; Urine Ketones Negative (Negative); Urine Protein Negative (Negative); Urine Red Blood Cell Trace(0-2/hpf) (Absent); Urine Specific Gravity 1.003 (1.010-1.030); Urine Urobilinogen Negative (Negative); Urine White Blood Cell Trace(0-5/hpf) (Absent)
[2018-02-24] MEDS ORDERED: Acetaminophen TAB* 325 MG PO ONE (22:34)
[2018-02-24] MEDS ORDERED: Promethazine TAB* 25 MG PO ONE (22:35)
--- NOTE | 2018-02-25 00:04 | RAD ---
EXAM: US , Transvaginal CLINICAL HISTORY: 32 years old, female; Signs and symptoms; Lmp or gestational age (in weeks): Lmp 01/10/2018 6w3d; Antepartum complications; Bleeding; ; Prior surgery; Surgery date: 6+ months; Surgery type: 2011; Patient HX: Bleeding w/ llq and back pain; Additional info: 6 weks preg, llq pain, + bleeding TECHNIQUE: Real-time transvaginal obstetrical ultrasound of the maternal pelvis and a first trimester with image documentation. Transvaginal imaging was used for better evaluation of the fetus and adnexa. COMPARISON: No relevant prior studies available. FINDINGS: Gestation: Gestational sac is identified with measurements corresponding to a gestational age of 5 weeks, 1 day. pole is not identified at this early time. Uterus/cervix: The uterus measures approximately 8.8 x 3.5 x 4.4 cm. Endometrial echo measures 8 mm in thickness. No myometrial mass. Ovaries: The maternal right ovary measures approximately 2.7 x 3.3 x 2.9 cm. Right ovarian cyst is present measuring 2.1 x 2.0 x 2.1 cm. The maternal left ovary measures approximately 2.3 x 2.6 x 1.4 cm. No mass. Free fluid: No free fluid. IMPRESSION: Gestational sac is identified with measurements corresponding to a gestational age of 5 weeks, 1 day. Right ovarian cyst. To contact [facility] with a general question: Operations Center - [phone] For direct physician to physician contact: Physician Hotline - [phone] [facility] ([facility] Facility ID #[id number])
--- NOTE | 2018-02-25 00:56 | ED ---
Abdominal Pain/Female - HPI Summary HPI Summary: Patient with history of 6 weeks complains of left lower quadrant pain radiating to bilateral lower back pain starting at 5:30 PM today. Patient states pain described as cramping and intense, accompanied with very mild vaginal bleeding, mild nausea. Denies fever, cough, sore throat, CP, SOB, V/D, change in urine, change in BM, vaginal discharge or vaginal pain. Medical history is fibromyalgia, migraine. . - History of Current Complaint Chief Complaint: EDAbdPain Stated Complaint: 6 WKS PREG/LT SIDE AND BACK PAIN/SPOTTING Time Seen by Provider: 02/24/18 22:23 Hx Obtained From: Patient Hx Last Menstrual Period: murania Onset/Duration: Sudden Onset Timing: Constant Severity Initially: Moderate Severity Currently: Moderate Pain Intensity: 5 Pain Scale Used: 0-10 Numeric Location: Discrete At: LLQ Radiates: Yes Radiates to: Back Character: Cramping Aggravating Factor(s): Nothing Alleviating Factor(s): Nothing Associated Signs and Symptoms: Positive: Back Pain, Vaginal Bleeding, Nausea Allergies/Adverse Reactions: Allergies Allergy/AdvReac Type Severity Reaction Status Date / Time codeine Allergy Vomiting Verified 02/24/18 19:07 hydrocodone [From Vicodin] Allergy Vomiting Verified 02/24/18 19:07 latex Allergy Rash Verified 02/24/18 19:07 morphine Allergy See Comment Verified 02/24/18 19:07 ondansetron Allergy See Comment Verified 02/24/18 19:07 [From Zofran (as hydrochloride)] Penicillins Allergy Hives Verified 02/24/18 19:07 Sulfa (Sulfonamide Allergy Fever Verified 02/24/18 19:07 Antibiotics) sumatriptan [From Imitrex] Allergy See Comment Verified 02/24/18 19:07 tramadol Allergy See Comment Verified 02/24/18 19:07 Home Medications: Home Medications Folic Acid TAB* 02/24/18 [History] PMH/Surg Hx/FS Hx/Imm Hx Endocrine/Hematology History: Denies: Hx Anticoagulant Therapy, Hx Diabetes Cardiovascular History: Denies: Hx Cardiac Arrest, Hx Hypertension, Hx Pacemaker/ICD History: Denies: Hx Dialysis, Hx Renal Disease Musculoskeletal History: Denies: Hx Scoliosis Sensory History: Denies: Hx Hearing Aid Neurological History: Reports: Hx Migraine Denies: Hx Headaches, Other Neuro Impairments/Disorders Psychiatric History: Denies: Hx Panic Disorder - Surgical History Surgery Procedure, Year, and Place: 07/24/11 . 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 2011 WISDOM TEETH Infectious Disease History: No Infectious Disease History: Denies: Traveled Outside the [place] in Last 30 Days - Family History Known Family History: Positive: Other - MIGRAINE, COLITIS Negative: Diabetes - Social History Alcohol Use: None Substance Use Type: Reports: None Smoking Status (MU): Light Every Day Tobacco Smoker Type: eCigarettes Review of Systems Constitutional: Negative Eyes: Negative ENT: Negative Cardiovascular: Negative Respiratory: Negative Positive: Abdominal Pain, Nausea Genitourinary: Negative Musculoskeletal: Negative Skin: Negative Neurological: Negative Psychological: Normal All Other Systems Reviewed And Are Negative: Yes Physical Exam - Summary Physical Exam Summary: Tenderness in left lower quadrant. Abdominal exam otherwise unremarkable. Triage Information Reviewed: Yes Vital Signs On Initial Exam: Initial Vitals Temp Pulse Resp BP Pulse Ox 98.0 F 119 18 118/78 99 02/24/18 19:03 02/24/18 19:03 02/24/18 19:03 02/24/18 19:03 02/24/18 19:03 Vital Signs Reviewed: Yes Appearance: Positive: Well-Appearing Skin: Positive: Warm Head/Face: Positive: Normal Head/Face Inspection Eyes: Positive: Normal Neck: Positive: Supple Respiratory/Lung Sounds: Positive: Clear to Auscultation Cardiovascular: Positive: Normal Abdomen Description: Positive: Other: Musculoskeletal: Positive: Normal Neurological: Positive: Normal Psychiatric: Positive: Normal AVPU Assessment: Alert - [place] Coma Scale Best Eye Response: 4 - Spontaneous Best Motor Response: 6 - Obeys Commands Best Verbal Response: 5 - Oriented Coma Scale Total: 15 Diagnostics - Vital Signs Vital Signs Temp Pulse Resp BP Pulse Ox 02/25/18 00:05 85 124/83 95 02/25/18 00:00 89 96 02/24/18 23:41 93 95 02/24/18 22:35 100 124/82 99 02/24/18 22:34 99 100 02/24/18 21:06 98.4 F 102 16 124/74 98 02/24/18 19:03 98.0 F 119 18 118/78 99 - Laboratory Lab Results: Lab Results 02/24/18 02/24/18 02/24/18 Range/Units 20:01 20:01 20:08 WBC 9.2 (3.5-10.8) 10^3/ul RBC 4.05 (4.00-5.40) 10^6/ul Hgb 12.9 (12.0-16.0) g/dl Hct 38 (35-47) % MCV 93 (80-97) fL MCH 32 H (27-31) pg MCHC 34 (31-36) g/dl RDW 12 (10.5-15) % Plt Count 303 (150-450) 10^3/ul MPV 8.6 (7.4-10.4) um3 Neut % (Auto) 57.9 (38-83) % Lymph % (Auto) 31.9 (25-47) % [place] % (Auto) 7.5 H (0-7) % Eos % (Auto) 2.0 (0-6) % Baso % (Auto) 0.7 (0-2) % Absolute Neuts (auto) 5.3 (1.5-7.7) 10^3/ul Absolute Lymphs (auto) 2.9 (1.0-4.8) 10^3/ul Absolute Monos (auto) 0.7 (0-0.8) 10^3/ul Absolute Eos (auto) 0.2 (0-0.6) 10^3/ul Absolute Basos (auto) 0.1 (0-0.2) 10^3/ul Absolute Nucleated RBC 0 10^3/ul Nucleated RBC % 0.1 Sodium 137 (135-145) mmol/L Potassium 3.4 L (3.5-5.0) mmol/L Chloride 104 (101-111) mmol/L Carbon Dioxide 27 (22-32) mmol/L Anion Gap 6 (2-11) mmol/L BUN 6 (6-24) mg/dL Creatinine 0.65 (0.51-0.95) mg/dL Est GFR ( Amer) 129.5 (>60) Est GFR (Non-Af Amer) 107.0 (>60) BUN/Creatinine Ratio 9.2 (8-20) Glucose 99 (70-100) mg/dL Calcium 9.5 (8.6-10.3) mg/dL Beta HCG, Quant 1852.00 mIU/mL Urine Color Straw Urine Appearance Clear Urine pH 6.0 (5-9) Ur Specific [place] 1.003 L (1.010-1.030) Urine Protein Negative (Negative) Urine Ketones Negative (Negative) Urine Blood 1+ A (Negative) Urine Nitrate Negative (Negative) Urine Bilirubin Negative (Negative) Urine Urobilinogen Negative (Negative) Ur Leukocyte Esterase Negative (Negative) Urine WBC (Auto) Trace(0-5/hpf) (Absent) Urine RBC (Auto) Trace(0-2/hpf) (Absent) Ur Squamous Epith Cells Present A (Absent) Urine Bacteria 1+ A (Absent) Urine Glucose Negative (Negative) Result Diagrams: 02/24/18 20:01 02/24/18 20:01 Lab Statement: Any lab studies that have been ordered have been reviewed, and results considered in the medical decision making process. - Ultrasound No standard instances Ultrasound Interpretation: No Acute Changes - Gestational sac, gestational age of 5 weeks 1 day. Right ovarian cyst. No mention report of ectopic. No free fluid. Abdominal Pain Fem Course/Dx - Course Course Of Treatment: Patient with history of 6 weeks complains of left lower quadrant pain radiating to bilateral lower back pain starting at 5:30 PM today. Patient states pain described as cramping and intense, accompanied with very mild vaginal bleeding, mild nausea. Denies fever, cough, sore throat, CP, SOB, V/D, change in urine, change in BM, vaginal discharge or vaginal pain. Medical history is fibromyalgia, migraine. . Physical exam:Tenderness in left lower quadrant. Abdominal exam otherwise unremarkable. Vital signs within normal limits. Labs unremarkable. Ultrasound positive for gestational sac 5 weeks 1 day. Patient has appointment with [facility] next Wednesday. Rx for Phenergan. Tylenol for abdominal pain. Patient understands and approves of plan. - Diagnoses Provider Diagnoses: , Left sided abdominal pain, Vaginal spotting Discharge - Sign-Out/Discharge Documenting (check all that apply): Patient Departure - Discharge Plan Condition: Stable Disposition: HOME Prescriptions: Promethazine TAB* [Phenergan TAB*] 25 mg PO Q8H PRN 5 Days #15 tab PRN Reason: Nausea Patient Education Materials: (ED), Abdominal Pain in (ED) Referrals: Rachel Reddy NP [Primary Care Provider] - Additional Instructions: Follow-up with your [facility] [facility] appointment on Wednesday of next week for further evaluation. Return to the ED for any new or worsening symptoms. - Billing Disposition and Condition Condition: STABLE Disposition: Home
[2018-02-25 01:12] VITALS: BP 123/89
== END 2018-02-25 01:10 | disposition home or self-care (01) ==
LOC: ED 18:43
DX: O26.891 Other specified pregnancy related conditions, first trimester (principal); Z3A.01 Less than 8 weeks gestation of pregnancy; R10.32 Left lower quadrant pain; O34.81 Maternal care for other abnormalities of pelvic organs, first trimester; N83.209 Unspecified ovarian cyst, unspecified side; M79.7 Fibromyalgia; O99.331 Smoking (tobacco) complicating pregnancy, first trimester; F17.290 Nicotine dependence, other tobacco product, uncomplicated; Z88.5 Allergy status to narcotic agent; Z88.2 Allergy status to sulfonamides; Z88.8 Allergy status to other drugs, medicaments and biological substances
CPT/HCPCS: 36415; 76817; 80048; 81003; 81015; 84702; 85025; 87086; 99284; A9270-GY

== ENCOUNTER 2018-10-19 20:40 | Emergency (ER) | payer SELFPAY ==
[2018-10-19 20:56] VITALS: BP 130/53
[2018-10-19] MEDS ORDERED: Acetaminophen TAB* 325 MG PO ONE (21:02)
--- NOTE | 2018-10-19 21:21 | ED ---
Back Pain - HPI Summary HPI Summary: 33 yr old female with the complaint of fever for three days that has been getting harder to control. The patient has had left flank pain that is severe. She has pain that is severe at times and radiates around the front. She has had some associated Nausea and vomiting. She denies diarrhea. She has not had urinary symptoms. No runny nose, cough or sore throat. She had her last period a week ago. - History of Current Complaint Chief Complaint: UCGU Stated Complaint: FEVER,LOW BACK PAIN Time Seen by Provider: 10/19/18 20:59 Hx Last Menstrual Period: October 13 Pain Intensity: 6 - Allergies/Home Medications Allergies/Adverse Reactions: Allergies Allergy/AdvReac Type Severity Reaction Status Date / Time codeine Allergy Vomiting Verified 10/19/18 20:56 hydrocodone [From Vicodin] Allergy Vomiting Verified 10/19/18 20:56 latex Allergy Rash Verified 10/19/18 20:56 morphine Allergy See Comment Verified 10/19/18 20:56 ondansetron Allergy See Comment Verified 10/19/18 20:56 [From Zofran (as hydrochloride)] Penicillins Allergy Hives Verified 10/19/18 20:56 Sulfa (Sulfonamide Allergy Fever Verified 10/19/18 20:56 Antibiotics) sumatriptan [From Imitrex] Allergy See Comment Verified 10/19/18 20:56 tramadol Allergy See Comment Verified 10/19/18 20:56 PMH/Surg Hx/FS Hx/Imm Hx Endocrine/Hematology History: Reports: Hx Anemia - HX OF IN THE PAST Denies: Hx Anticoagulant Therapy, Hx Diabetes Cardiovascular History: Denies: Hx Cardiac Arrest, Hx Hypertension, Hx Pacemaker/ICD GI History: Reports: Hx Irritable Bowel History: Reports: Hx Kidney Infection - 6 YEARS AGO- DURING Denies: Hx Dialysis, Hx Renal Disease Musculoskeletal History: Denies: Hx Scoliosis Sensory History: Reports: Hx Contacts or Glasses - INSTRUCTS GIVEN Denies: Hx Hearing Aid Opthamlomology History: Reports: Hx Contacts or Glasses - INSTRUCTS GIVEN Neurological History: Reports: Hx Migraine - TAKES MAGNESIUM FOR Denies: Hx Headaches, Other Neuro Impairments/Disorders Psychiatric History: Reports: Hx Anxiety - ON MEDICATION FOR, Hx Depression - ON MEDICATION FOR Denies: Hx Panic Disorder - Surgical History Surgery Procedure, Year, and Place: 07/24/11 . 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 2010 WISDOM TEETH Hx Anesthesia Reactions: Yes - SLOW TO WAKE UP Infectious Disease History: No Infectious Disease History: Denies: Traveled Outside the [place] in Last 30 Days - Family History Known Family History: Positive: Other - MIGRAINE, COLITIS Negative: Diabetes - Social History Lives: With Family Alcohol Use: None Substance Use Type: Reports: None Smoking Status (MU): Former Smoker Type: eCigarettes Amount Used/How Often: VAPE SMOKING X 5 YEARS Have You Smoked in the Last Year: Yes Review of Systems Positive: Fever, Chills, Fatigue Positive: flank pain All Other Systems Reviewed And Are Negative: Yes Physical Exam Triage Information Reviewed: Yes Vital Signs On Initial Exam: Initial Vitals Temp Pulse Resp BP Pulse Ox 102.4 F 130 20 130/53 98 10/19/18 20:50 10/19/18 20:50 10/19/18 20:50 10/19/18 20:50 10/19/18 20:50 Vital Signs Reviewed: Yes Appearance: Positive: Ill-Appearing Skin: Positive: Warm, Skin Color Reflects Adequate Perfusion Head/Face: Positive: Normal Head/Face Inspection Eyes: Positive: EOMI, ASHLEY ENT: Positive: Normal ENT inspection, Pharynx normal. Negative: Nasal congestion, Nasal drainage Neck: Positive: Nontender. Negative: Nuchal Rigidity Respiratory/Lung Sounds: Positive: Clear to Auscultation, Breath Sounds Present Cardiovascular: Positive: Tachycardia. Negative: Murmur Abdomen Description: Positive: Soft. Negative: CVA Tenderness (R), CVA Tenderness (L), Distended Musculoskeletal: Positive: Strength/ROM Intact Neurological: Positive: Sensory/Motor Intact, Alert, Oriented to Person Place, Time, CN Intact II-III, Normal Gait, Speech Normal Psychiatric: Positive: Normal Diagnostics - Vital Signs Vital Signs Temp Pulse Resp BP Pulse Ox 10/19/18 20:50 102.4 F 130 20 130/53 98 - Laboratory Lab Results: Lab Results 10/19/18 10/19/18 Range/Units 21:05 21:08 POC Urine Color Yellow POC Urine Clarity Cloudy POC Urine pH 7.0 (5-9) POC Ur Specif [place] 1.010 (1.010-1.030) POC Urine Protein 1+ A (Negative) POC Ur Glucose (UA) Negative (Negative) POC Urine Ketones Negative (Negative) POC Urine Blood 2+ A (Negative) POC Urine Nitrite Negative (Negative) POC Urine Bilirubin Negative (Negative) POC Urine Urobilinogen 0.2 (Negative) POC U Leukocyte Esteras Trace A (Negative) POC Ur Test Negative (Negative) Lab Statement: Any lab studies that have been ordered have been reviewed, and results considered in the medical decision making process. Back Pain Course/Dx - Course Course Of Treatment: 33 yr old with possible sepsis. Neg hcg. Urine not that impressive for pyelo. She could have obstructin renal stone and sepsis. She signed out AMA and refused ambulance transport. They verbalized they are driving to [facility]. - Diagnoses Provider Diagnoses: Flank pain, Left flank pain, Fever, Tachycardia Discharge - Sign-Out/Discharge Documenting (check all that apply): Patient Departure All imaging exams completed and their final reports reviewed: No Studies - Discharge Plan Condition: Good Disposition: AGAINST MEDICAL ADVICE Referrals: Rachel Reddy NP [Primary Care Provider] - - Billing Disposition and Condition Condition: GOOD Disposition: Against Medical Advice
--- NOTE | 2018-10-23 06:58 | UC ---
- Progress Note Progress Note: Please call to determine if this patient did indeed go to the ER She signed out AMA and has a + urine culture and VS concerning for possible sepsis Course/Dx - Diagnoses Provider Diagnoses: Flank pain, Left flank pain, Fever, Tachycardia Discharge - Sign-Out/Discharge Documenting (check all that apply): Post-Discharge Follow Up All imaging exams completed and their final reports reviewed: No Studies - Discharge Plan Condition: Stable Disposition: AGAINST MEDICAL ADVICE Referrals: Rachel Reddy NP [Primary Care Provider] - - Billing Disposition and Condition Condition: STABLE Disposition: Against Medical Advice
== END 2018-10-19 21:15 | disposition left against medical advice (07) ==
LOC: UCCORT 20:40
DX: R50.9 Fever, unspecified (principal); R10.9 Unspecified abdominal pain; R00.0 Tachycardia, unspecified; R11.2 Nausea with vomiting, unspecified; Z88.5 Allergy status to narcotic agent; Z91.040 Latex allergy status; Z88.8 Allergy status to other drugs, medicaments and biological substances; Z88.2 Allergy status to sulfonamides; Z87.891 Personal history of nicotine dependence
CPT/HCPCS: 81003; 84702; 87077; 87086; 87186; 99212; A9270-GY; G0463

== ENCOUNTER 2019-09-08 12:30 | Emergency (ER) | payer BC, OTHER ==
[2019-09-08 13:08] VITALS: BP 143/81
--- NOTE | 2019-09-08 13:10 | UC ---
Shoulder Pain HPI - HPI Summary HPI Summary: 34yo female presenting at 31 weeks with complaint of left shoulder pain since this morning at 1100 when she "felt a pop" while pulling open a jammed door at work. Patient describes pain as throbbing and worse with movement of shoulder. Also notes tingling in the 4th and 5th fingers of left hand. Denies radiating pain. Denies neck pain. Denies taking anything for pain relief. Denies prior injury to the shoulder. - History of Current Complaint Chief Complaint: UCUpperExtremity Stated Complaint: SHOULDER INJURY Hx Obtained From: Patient Hx Last Menstrual Period: 02/07/19 Pain Intensity: 5 Pain Scale Used: 0-10 Numeric Related History: Occupational Injury, Dominant Hand Right - Allergies/Home Medications Allergies/Adverse Reactions: Allergies Allergy/AdvReac Type Severity Reaction Status Date / Time codeine Allergy Vomiting Verified 09/08/19 13:08 hydrocodone [From Vicodin] Allergy Vomiting Verified 09/08/19 13:08 latex Allergy Rash Verified 09/08/19 13:08 morphine Allergy See Comment Verified 09/08/19 13:08 ondansetron Allergy See Comment Verified 09/08/19 13:08 [From Zofran (as hydrochloride)] Penicillins Allergy Hives Verified 09/08/19 13:08 Sulfa (Sulfonamide Allergy Fever Verified 09/08/19 13:08 Antibiotics) sumatriptan [From Imitrex] Allergy See Comment Verified 09/08/19 13:08 tramadol Allergy See Comment Verified 09/08/19 13:08 Home Medications: Home Medications Multivitamin [Multivitamins] 1 cap PO QAM 08/31/16 [History Confirmed 09/08/19] Pregabalin 100 mg CAP (*) [Lyrica CAP(*)] 100 mg PO QID 03/28/18 [History Confirmed 09/08/19] Cholecalciferol (Vitamin D3) [D3-2000] 1 tab PO DAILY 09/08/19 [History Confirmed 09/08/19] PMH/Surg Hx/FS Hx/Imm Hx Previously Healthy: Yes Other History Of: Negative For: Anticoagulant Therapy - Surgical History Surgical History: Yes Surgery Procedure, Year, and Place: 07/24/11 . 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 2010 WISDOM TEETH - Family History Known Family History: Positive: Other - MIGRAINE, COLITIS Negative: Diabetes - Social History Alcohol Use: None Substance Use Type: None Smoking Status (MU): Former Smoker Type: eCigarettes Amount Used/How Often: VAPE SMOKING X 5 YEARS Have You Smoked in the Last Year: Yes When Did the Patient Quit Smoking/Using Tobacco: 12/2017 Review of Systems All Other Systems Reviewed And Are Negative: No Constitutional: Positive: Negative Skin: Positive: Negative. Negative: Bruising Respiratory: Positive: Negative Cardiovascular: Positive: Negative Gastrointestinal: Positive: Negative Neurovascular: Positive: Negative Musculoskeletal: Positive: Arthralgia - left shoulder, Decreased ROM - L shoulder. Negative: Edema Neurological/Mental Status: Positive: Paresthesia - left 4th and 5th fingers. Negative: Numbness Physical Exam - Summary Physical Exam Summary: Vital Signs Reviewed: Yes A+Ox3, no distress Eyes: Conjunctiva Clear ENT: Hearing grossly normal neck: supple Respiratory: Positive: No respiratory distress, No accessory muscle use Cardiovascular: skin color reflect adequate perfusion, cap refill <2 sec, strong radial pulses Musculoskeletal Exam: +TTP of left trapezius muscle/posterior shoulder, decreased ROM of left shoulder abduction d/t pain, no erythema or ecchymosis, no deformity, no edema, sensation grossly intact Neurological: Positive: Alert, ambulatory without difficulty Psychological: Positive: age appropriate behavior Skin: Positive: no rash, no ecchymosis Vital Signs: Initial Vital Signs Temp 97.6 F 09/08/19 13:04 Pulse 110 09/08/19 13:04 Resp 18 09/08/19 13:04 BP 143/81 09/08/19 13:04 Pulse Ox 100 09/08/19 13:04 Shoulder Course/Dx - Course Course Of Treatment: Discussed likely muscle strain and provided patient with sling for support. Instructed to apply ice or heat and to take tylenol as directed for pain relief. I provided patient with follow up referral with Dr. Conrad if needed. Patient voiced understanding and agreed with treatment plan. - Differential Dx/Diagnosis Differential Diagnosis/HQI/PQRI: Rotator Cuff Injury, Sprain, Strain Provider Diagnosis: Strain of left shoulder Discharge ED - Sign-Out/Discharge Documenting (check all that apply): Patient Departure All imaging exams completed and their final reports reviewed: No Studies - Discharge Plan Condition: Stable Disposition: HOME Patient Education Materials: Muscle Strain (ED), Shoulder Pain (ED) Forms: *Work Release Referrals: Rachel Reddy NP [Primary Care Provider] - Rickey Conrad MD [Medical Doctor] - If Needed Additional Instructions: As discussed, your pain is likely caused by a muscle strain. Rest, ice/heat, and take tylenol as directed to help alleviate pain symptoms. You may use the sling while you are active during the day. This does not need to be worn at night. Refrain from strenuous physical activity until pain has resolved fully. You should perform mild stretching a few times daily to keep the shoulder mobile. If symptoms persist or worsen, follow up with occupational health listed below. - Billing Disposition and Condition Condition: STABLE Disposition: Home
--- OUTSIDE RECORDS SUMMARY | 2019-09-08 13:15 | XMS REPORT | Continuity of Care Document ---
:1985 External Reference #:[id number] Author Name Laboratory (transmitted by agent of provider Fang Escalante) Address [address] [place] [address] Care Team Providers Name Role Phone Rachel Reddy [employer] - Family Care Team Information Launch Steward [phone] [facility] [place] [facility] Care Team Information Launch Steward [phone] Problems Active Problems Provider Date Cervical intraepithelial neoplasia grade 1 Alfonzo Miller CNM Onset: 2013 Social History Type Date Description Comments Sex Unknown Cigarette Use Former Cigarette 5 years Smoker 1/2 Pack Daily ETOH Use Denies alcohol use Recreational Drug Use Denies Drug Use Tobacco Use Start: Unknown Patient is a former End: Unknown smoker Smoking Status Reviewed: 04/27/19 Patient is a former smoker Exercise Type/Frequency Exercises regularly Seat Belt/Car Seat Always uses seat belt MARIKA: 09/18/2011 Estimated Date of Based on 1st Delivery Ultrasound Allergies, Adverse Reactions, Alerts Active Allergies Reaction Severity Comments Date Penicillin Hives Severe 12/09/2010 Sulfa Rash and fever Moderate 12/09/2010 Morphine Hives Severe 12/09/2010 Vicodin nausea and vomiting 12/09/2010 Codeine nausea and vomiting 12/09/2010 Amoxicillin Hives Severe 12/09/2010 Keflex Hives Severe 12/09/2010 Augmentin Hives Severe 12/09/2010 Lactose (Allergy) 12/09/2010 Latex edema Severe 12/13/2012 Imitrex Anaphylaxis Severe 10/13/2018 Medications Active Medications SIG Qnty Indications Ordering Provider Date Lyrica 100mg qid Unknown 400mg Capsules Dha 1 by mouth every Unknown 200mg Capsules day, ok to use 200-400mg dha Magnesium Oxide -MG 1600mg daily Unknown Supplement 400mg Capsules Iron (Ferrous Sulfate) Unknown 142(45Fe) mg Tablets ER Medications Administered in Office Medication SIG Qnty Indications Ordering Provider Date PT SCRN Tbco Id as Non User Alesha Maldonado MD 04/27/2019 Injection PT SCRN Tbco Id as Non User Kiarra Patterson MD 11/02/2018 Injection PT SCRN Tbco Id as Non User Alesha Maldonado MD 2018 Injection PT SCRN Tbco Id as Non User Shad Bowles, 08/25/2017 Injection Xu Depo Provera Nurses 07/29/2012 Injection Injection Medroxyprogesterone Nurses 04/29/2012 Acetate /Depo Provera/Contraception Injection Injection Medroxyprogesterone Nurses 02/05/2012 Acetate /Depo Provera/Contraception Injection Injection Medroxyprogesterone Nurses 11/20/2011 Acetate /Depo Provera/Contraception Injection Injection Medroxyprogesterone Kathie Sharpe MD 09/11/2011 Acetate /Depo Provera/Contraception Injection Immunizations CPT Code Status Date Vaccine Lot # [id number] Given 08/25/2019 Tetnus, Diptheria Toxoids And Acellular Pertussis, [id number] PT > 7Yrs Old Vital Signs Date Vital Result Comment 05/04/2019 10:57am BP Systolic 124 mmHg BP Diastolic 68 mmHg Height 61 inches 5'1" Weight 151.00 lb BMI (Body Mass Index) 28.5 kg/m2 Last Menstrual Period 1323880 3 Parity 1 04/27/2019 10:58am Height 61 inches 5'1" Weight 151.00 lb BMI (Body Mass Index) 28.5 kg/m2 Last Menstrual Period 3961671 3 Parity 1 Results Test Acquired Facility Test Result H/L Range Note Date Glucose 08/31/2019 [facility] GTT 3HR (SEE NOTE) 1 Tolerance 3HR [place] [address] Gestational Gestational [phone] Laboratory test 08/31/2019 [facility] Rubella Screen Equivocal Immune [address] [place] [address] [phone] Laboratory test 08/25/2019 [facility] Glucose 1 HR 158 mg/dL Normal 70-160 3 [place] [address] Post Prandial [phone] CBC With No 08/25/2019 [facility] White Blood 11.3 10^3/uL High 3.5-10.8 [place] [address] Count [phone] Red Blood Count 3.44 10^6/uL Low 3.70-4.87 Hemoglobin 9.9 g/dL Low 12.0-16.0 Hematocrit 30 % Low 35-47 Mean Corpuscular Volume 87 fL Normal 80-97 Mean Corpuscular Hemoglobin 29 pg Normal 27-31 Mean Corpuscular HGB Conc 33 g/dL Normal 31-36 Red Cell Distribution Width 14 % Normal 10-15 Platelet Count 263 10^3/uL Normal 150-450 Mean Platelet Volume 8.7 fL Normal 7.4-10.4 GC/Chlamydia Dna 08/01/2019 [facility] GCC Disclaimer (SEE NOTE) 4 [place] [address] [phone] Chlamydia trachomatis Dang Negative Negative Neisseria gonorrhoeae (GC) Dang Negative Negative Drug Screen 08/01/2019 [facility] Urine None Detected None [place] [address] Hydrocodone Clinic [phone] Screen Urine Oxycodone Screen None Detected None Detect Urine Fentanyl Screen None Detected None Detect Urine Methadone Screen None Detected None Detect Urine Buprenorphine Screen None Detected None Detect Urine Amphetamine Screen None Detected None Detect Urine Barbiturates Screen None Detected None Detect Urine Benzodiazepine Screen None Detected None Detect Urine Cannabinoids Screen None Detected None Detect Urine Opiates Screen None Detected None Detect Urine Phencyclidine Screen None Detected None Detect 5 Urine Cocaine Screen None Detected None Detect CMV 05/30/2019 [facility] Cytomegalovirus Positive Abnormal Negative 6 Igg/[place] [address] IgG Antibody [phone] Cytomegalovirus IgM Antibody Negative Negative Afp,Screen 05/30/2019 [facility] Results Summary [place] [address] [phone] Neural Tube Defect Estimate 1 Collection Date 05/30/19 Maternal Date of 89 Calculated Age At MARIKA 34 years Maternal Weight 151 lbs Insulin Dependent Diabetes No Current Cigarette Smoking Stat non-Smoker Patient Race non-Black Number of Fetuses 1 Number of Chorions Monochorionic Ivf No Prev Preg w/Neural Tube Defect No Patient/Father of Baby Has NTD No Initial Or Repeat Testing Initial testing MARIKA by U/S Scan 11/12/19 Physician Phone Number [phone] GA On Collection by U/S SEE BELOW wk,d 7 GA Used In Risk Estimate Scan estimate Afp 71.7 ng/mL Afp MoM 2.04 MoM <2.50 Interpretation See Comment 8 Additional Comments See Comment 9 Recommended Follow Up None. General Test Information See Comment 10 HIV 1&2 p24 05/30/2019 [facility] HIV 4th Nonreactive [place] [address] Generation [phone] Lead 05/30/2019 [facility] Lead,Venous, B < 1.0 g/dL 0.0- 4.9 11 [place] [address] [phone] Venous/Capillary Venous Submitting Laboratory Phone [phone] Type And Screen 05/30/2019 [facility] Patient Blood [place] [address] [phone] Antibody Screen NEGATIVE CBC With No 05/30/2019 [facility] White Blood 9.5 10^3/uL Normal 3.5-10.8 [place] [address] Count [phone] Red Blood Count 3.63 10^6/uL Low 3.70-4.87 Hemoglobin 12.1 g/dL Normal 12.0-16.0 Hematocrit 34 % Low 35-47 Mean Corpuscular Volume 93 fL Normal 80-97 Mean Corpuscular Hemoglobin 33 pg High 27-31 Mean Corpuscular HGB Conc 36 g/dL Normal 31-36 Red Cell Distribution Width 12 % Normal 10-15 Platelet Count 224 10^3/uL Normal 150-450 Mean Platelet Volume 9.6 fL Normal 7.4-10.4 PNL No 05/30/2019 [facility] Rubella Screen Equivocal Immune 13 [place] [address] [phone] Hemoglobin A1c 4.8 % Normal 4.0-5.6 14 Hepatitis B Surface Ag Nonreactive Nonreactive 15 Syphillis Igg W/Reflex RPR Negative Negative 16 Urine Culture And 05/04/2019 [facility] Urine Culture SEE RESULT 17 [place] [address] BELOW [phone] Chromosomes 13, 04/27/2019 [employer] Chromosome 13 Negative Normal 18 18, 21 + Sex Aneuploidy Chromosome Chromosome 18 Aneuploidy Negative Normal 19 Chromosome 21 Aneuploidy Negative Normal 20 Sex Chromosome Analysis Male Normal 21 PDF Report SEE IMAGE Laboratory test 03/20/2019 [facility] HCG 04551.00 mIU /mL [address] [place] [address] [phone] Laboratory test 03/17/2019 [facility] HCG 51099.00 mIU /mL [address] [place] [address] [phone] 1 GLU Fast 81 Col: 08/31/19 1009 GLU 1HR 184 Col: 08/31/19 1109 GLU 2HR 146 Col: 08/31/19 1209 GLU 3HR 43 Col: 08/31/19 1309 GLU Interp Col: 08/31/19 1009 GTT normal ranges for obstetrics per the [employer] (ACOG).Based on 100 gm glucose load: Fasting <95 mg/dl 1hr <180 mg/dl 2hr <155 mg/dl 3hr <140 mg/dl 2 FASTING [id number] 3 [id number] 4 As with all diagnostic procedures, the laboratory results obtained should be used in conjunction with other clinical information available to the physician, including confirmation by another method, as applicable. 5 The specimen was tested at the listed cutoffs: Drug Class Test level (ng/mL) Hydrocodone 300 Oxycodone 100 Fentanyl 1 Methadone 150 Buprenorphine 5 Amphetamines 500 Barbiturates 200 Benzodiazepines 200 Cocaine 150 Cannabinoids 50 Opiates 300 PCP 25 Specimen was received without chain of custody. Results should be used for medical purposes only. 6 Test Performed by: [facility] [place] [address] Social Media Analyst: Brett Ramires M.D. Ph.D.; CLIA# [id number] 7 RESULT: 16,2 8 RESULT: Screen negative for neural tube defects. 9 RESULT: Reviewed by Ismael Coyne M.D. 10 This screening provides an estimation of risk, not a diagnosis. Incorrect or incomplete information may significantly alter results. Results may be unreliable in twin pregnancies with a demise. Results are not available for pregnancies with triplets and higher-order multiples. A positive result occurs when the AFP MoM equals or exceeds 2.5. Screen results and family history influence individual risk. If there is a family history of a neural tube defect, chromosome abnormality, or other inherited condition, consider the option of a genetic consultation. For further information, please contact the maternal screening laboratory at . ADDITIONAL INFORMATION This test was developed and its performance characteristics determined by [facility] in a manner consistent with CLIA requirements. This test has not been cleared or approved by the U.S. Food and Drug Administration. Test Performed by: [facility] [place] [address] Social Media Analyst: Brett Ramires M.D. Ph.D.; CLIA# [id number] 11 ADDITIONAL INFORMATION Testing performed by Inductively Coupled Plasma-Mass Spectrometry (ICP-MS). This test was developed and its performance characteristics determined by [facility] in a manner consistent with CLIA requirements. This test has not been cleared or approved by the U.S. Food and Drug Administration. 12 Test Performed by: [facility] [place] [address] Social Media Analyst: Brett Ramires M.D. Ph.D.; CLIA# [id number] 13 [id number] 14 Therapeutic target for the treatment of diabetes mellitus patients is <7% HBA1C, and in selective patients <6.0%. Please refer to [place] diabetic care guidelines for further information. 15 [id number] 16 [id number] 17 SEE RESULT BELOW Name: REBEKAH CAO : [address]: Zuleima Barbosa [facility] Acct: [id number] Unit: [id number] AGE: 34 Location: [facility] Re05/04/19 SEX: F Status: REG REF SPEC: [id number] BRANDEN: 05/04/[address]: Zuleima Barbosa [facility] REQ: [id number] RECD: 05/04/19 STATUS: COMP _ SOURCE: URINE SPDESC: ORDERED: Urine Culture COMMENTS: [id number] Urine Source: Random Procedure Result Reported Site Urine Culture Final 05/05/19- 1413 ML No Growth (<1,000 CFU/mL) * ML - Main Lab . END OF REPORT DEPARTMENT OF PATHOLOGY, [address] [place] [address] Merrick Dewitt M.D. Director [facility] # [id number] 18 No aneuploidy detected. 19 No aneuploidy detected. 20 No aneuploidy detected. 21 Male: No aneuploidy detected. 22 <5.0 Negative 5.0 - 25.0 Indeterminate (Repeat testing recommended after 72 hours) >25.0 Positive Perimenopausal women can display HCG levels of up to 20 mIU/mL 23 <5.0 Negative 5.0 - 25.0 Indeterminate (Repeat testing recommended after 72 hours) >25.0 Positive Perimenopausal women can display HCG levels of up to 20 mIU/mL Procedures Date Code Description Status 08/25/2019 00409 Echography Uterus Follow-Up Or Repeat Completed 06/29/2019 60706 Echography Uterus Limited Completed 05/30/2019 65012 Echography Uterus Follow-Up Or Repeat Completed 04/27/2019 24669 Nuchal Translucency Ultrasound /First Gestation Completed Medical Devices Description No Information Available Encounters Type Date Location Provider Dx Diagnosis Office Visit 04/27/2019 [facility] Alesha Maldonado, O07.4 Failed attempted 11:30a termination of w/o complication Assessments Date Code Description Provider 08/31/2019 Z36.9 Encounter for screening, Kiarra Patterson MD unspecified 08/31/2019 Z36.9 Encounter for screening, Laboratory unspecified 08/25/2019 Z23 Encounter for immunization Shad A. Gelber, M.D. 08/25/2019 O44.42 Low lying placenta NOS or without Alesha Maldonado MD hemorrhage, second trimester 08/25/2019 Z36.9 Encounter for screening, Shad Bowles M.D. unspecified 08/25/2019 O44.42 Low lying placenta NOS or without Ultrasounds hemorrhage, second trimester 08/25/2019 Z34.83 Encounter for supervision of other normal Alesha Maldonado MD , third trimester 08/25/2019 Z36.9 Encounter for screening, Laboratory unspecified 08/01/2019 Z34.83 Encounter for supervision of other normal Lauren Cabrera MD , third trimester 06/29/2019 Z34.82 Encounter for supervision of other normal Rickey Mateo JR , DO , second trimester 06/29/2019 O34.211 Maternal care for low transverse scar from Rickey Mateo JR, DO previous delivery 06/29/2019 Z34.82 Encounter for supervision of other normal Ultrasounds , second trimester 05/30/2019 Z34.82 Encounter for supervision of other normal Rickey Mateo JR , DO , second trimester 05/30/2019 O34.211 Maternal care for low transverse scar from Rickey Mateo JR, DO previous delivery 05/30/2019 Z34.82 Encounter for supervision of other normal Ultrasounds , second trimester 05/04/2019 Z36.9 Encounter for screening, Zuleima Barbosa CNM unspecified 04/27/2019 Z36.3 Encounter for screening for Shad Bowles M.D. 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 Plan of Treatment Future Appointment(s):10/31/2019 3:20 pm - Shad Bowles M.D. at [facility]09/29/2019 9:00 am - Kiarra Patterson MD at [facility]09/29/2019 8:30 am - Ultrasounds at [facility]04/27/2019 - Alesha Maldonado MDO07.4 Failed attempted termination of without complicationComments:Will do NIPT today. Has new ob visit scheduled next week. Will do repeat sono in 4wks for reassurance and discussed option for level 2 sono for her anatomy scan. Reassured them that likely this will be fine though there is no good data on outcomes of pregnancies after failed terminations. Functional Status Description No Information Available Mental Status Description No Information Available Referrals Refer to Dr Reason for Referral Status Appt Date Nannette Benitez pt reports palpitations and heart skippng a beat 20 Closed weeks s, symptoms are persistent and daily [address] [facility] [place] [address] [phone] Center Echogenic Bowel, on USN NIPT normal. MSAFP and CMV Closed 06/19/2019 [address] collected [address] [place] [address] [phone]
--- OUTSIDE RECORDS SUMMARY | 2019-09-08 13:16 | XMS REPORT | Continuity of Care Document ---
:1985 External Reference #:[id number] Author Name Ultrasounds (transmitted by agent of provider Fang Escalante) Address [address] [place] [address] Care Team Providers Name Role Phone Barry, Rachel [facility] - Family Care Team Information Plush Cutter [phone] Problems Active Problems Provider Date Cervical intraepithelial [...] as Non User Shad Bowles, 08/25/2017 Injection MJodie Depo Provera Nurses 07/29/2012 Injection Injection Medroxyprogesterone Nurses 04/29/2012 Acetate /Depo Provera/Contraception Injection Injection Medroxyprogesterone Nurses 02/05/2012 Acetate /Depo Provera/Contraception Injection Injection Medroxyprogesterone Nurses 11/20/2011 Acetate /Depo Provera/Contraception Injection Injection Medroxyprogesterone Kathie Sharpe MD 09/11/2011 Acetate /Depo Provera/Contraception Injection Immunizations CPT Code Status Date Vaccine Lot # [id number] Given 08/25/2019 Tetnus, Diptheria Toxoids And Acellular Pertussis, 2KK23 PT > 7Yrs Old Vital Signs Date Vital Result Comment 05/04/2019 10:57am BP Systolic 124 mmHg BP Diastolic 68 mmHg Height 61 inches 5'1" Weight 151.00 lb BMI (Body Mass Index) 28.5 kg/m2 Last Menstrual Period 2691770 3 Parity 1 04/27/2019 10:58am Height 61 inches 5'1" Weight 151.00 lb BMI (Body Mass Index) 28.5 kg/m2 Last Menstrual Period 1220608 3 Parity 1 Results Test Acquired Date Facility Test Result H/L Range Note Laboratory test 08/25/2019 [facility] Glucose 1 HR <pending> [place] [address] Post Prandial [phone] GC/Chlamydia Dna 08/01/2019 [facility] GCCHL (SEE NOTE) 1 [place] [address] Disclaimer [phone] Chlamydia trachomatis Dang Negative Negative Neisseria gonorrhoeae (GC) Dang Negative Negative Drug Screen 08/01/2019 [facility] Urine None Detected None [place] [address] Hydrocodone Clinic [phone] Screen Urine Oxycodone Screen None Detected None [...] Urine Phencyclidine Screen None Detected None Detect 2 Urine Cocaine Screen None Detected None Detect CMV 05/30/2019 [facility] Cytomegalovirus Positive Abnormal Negative 3 Igg/[place] [address] IgG Antibody [phone] Cytomegalovirus IgM Antibody Negative Negative Afp,Screen 05/30/2019 [facility] Results Summary [place] [address] [phone] Neural Tube Defect Estimate Collection Date 05/30/19 Maternal Date of 89 [...] by U/S Scan 11/12/19 Physician Phone Number [phone] GA On Collection by U/S SEE BELOW wk,d 4 GA Used In Risk Estimate Scan estimate Afp 71.7 ng/mL Afp MoM 2.04 MoM <2.50 Interpretation See Comment 5 Additional Comments See Comment 6 Recommended Follow Up None. General Test Information See Comment 7 HIV 1&2 p24 05/30/2019 [facility] HIV 4th [place] [address] Generation [phone] Lead 05/30/2019 [facility] Lead,Venous, B < 1.0 g/dL 0.0- 4.9 8 [place], [place] [address] [phone] Venous/Capillary Venous Submitting Laboratory Phone [phone] Type And Screen 05/30/2019 [facility] Patient [place] [address] [phone] Antibody Screen NEGATIVE CBC With No 05/30/2019 [facility] White Blood 9.5 10^3/uL Normal 3.5-10.8 [place] [address] Count [phone] Red Blood Count 3.63 10^6/uL Low 3.70-4.87 Hemoglobin 12.1 g/dL Normal 12.0-16.0 Hematocrit 34 % Low 35-47 Mean Corpuscular Volume 93 fL Normal 80-97 Mean Corpuscular Hemoglobin 33 pg High 27-31 Mean Corpuscular HGB Conc 36 g/dL Normal 31-36 Red Cell Distribution Width 12 % Normal 10-15 Platelet Count 224 10^3/uL Normal 150-450 Mean Platelet Volume 9.6 fL Normal 7.4-10.4 PNL No 05/30/2019 [facility] Rubella Screen Equivocal Immune 10 [place] [address] [phone] Hemoglobin A1c 4.8 % Normal 4.0-5.6 11 Hepatitis B Surface Ag Nonreactive Nonreactive 12 Syphillis Igg W/Reflex RPR Negative Negative 13 Urine Culture And 05/04/2019 [facility] Urine Culture SEE RESULT 14 [place] [address] BELOW [phone] Chromosomes 13, 04/27/2019 [facility] Chromosome 13 Negative Normal 15 18, 21 + Sex Aneuploidy Chromosome Chromosome 18 Aneuploidy Negative Normal 16 Chromosome 21 Aneuploidy Negative Normal 17 Sex Chromosome Analysis Male Normal 18 PDF Report SEE IMAGE Laboratory test 03/20/2019 [facility] HCG 50549.00 mIU /mL 19 [place] [address] [phone] Laboratory test 03/17/2019 [facility] HCG 69594.00 mIU /mL 20 [place] [address] [phone] 1 As with all diagnostic procedures, the laboratory results obtained should be used in conjunction with other clinical information available to the physician, including confirmation by another method, as applicable. 2 The specimen was tested at the listed cutoffs: Drug Class Test level (ng/mL) Hydrocodone 300 Oxycodone 100 Fentanyl 1 Methadone 150 Buprenorphine 5 Amphetamines 500 Barbiturates 200 Benzodiazepines 200 Cocaine 150 Cannabinoids 50 Opiates 300 PCP 25 Specimen was received without chain of custody. Results should be used for medical purposes only. 3 Test Performed by: [facility] [place] [address] Gun Mechanic: Brett Ramires M.D. Ph.D.; CLIA# [id number] RESULT: 16,2 5 RESULT: Screen negative for neural tube defects. 6 RESULT: Reviewed by Ismael Coyne M.D. 7 This screening provides an estimation of risk, [...] developed and its performance characteristics determined by [facility] in a manner consistent with CLIA requirements. This test has not been cleared or approved by the U.S. Food and Drug Administration. Test Performed by: [facility] [place] [address] Gun Mechanic: Brett Ramires M.D. Ph.D.; CLIA# [id number] 8 ADDITIONAL INFORMATION Testing performed by Inductively Coupled Plasma-Mass Spectrometry (ICP-MS). This test was developed and its performance characteristics determined by [facility] in a manner consistent with CLIA requirements. This test has not been cleared or approved by the U.S. Food and Drug Administration. 9 Test Performed by: [facility] [address] [place] [address] Gun Mechanic: Brett Ramires M.D. Ph.D.; CLIA# [id number] 10 [id number] 11 Therapeutic target for the treatment of diabetes mellitus patients is <7% HBA1C, and in selective patients <6.0%. Please refer to [place] [employer] diabetic care guidelines for further information. 12 [id number] 13 [id number] 14 SEE RESULT BELOW Name: REBEKAH CAO : [address]: Zuleima Barbosa CNM Acct: [id number] Unit: [id number] AGE: 34 Location: [facility] Re05/04/19 SEX: F Status: REG REF SPEC: [id number] BRANDEN: 05/04/19-[address]: Zuleima Barbosa CNM REQ: [id number] RECD: 05/04/19 STATUS: COMP _ SOURCE: URINE SPDESC: ORDERED: Urine Culture COMMENTS: [id number] Urine Source: Random Procedure Result Reported Site Urine Culture Final 05/05/19- 1413 ML No Growth (<1,000 CFU/mL) * ML - Main Lab . END OF REPORT DEPARTMENT OF PATHOLOGY, [address] [place] [address] Merrick Dewitt M.D. Director [facility] # [id number] 15 No aneuploidy detected. 16 No aneuploidy detected. 17 No aneuploidy detected. 18 Male: No aneuploidy detected. 19 <5.0 Negative 5.0 - 25.0 Indeterminate (Repeat testing recommended after 72 hours) >25.0 Positive Perimenopausal women can display HCG levels of up to 20 mIU/mL 20 <5.0 Negative 5.0 - 25.0 Indeterminate (Repeat testing recommended after 72 hours) >25.0 Positive Perimenopausal women can display HCG levels of up to 20 mIU/mL Procedures Date Code Description Status 08/25/2019 32041 Echography Uterus Follow-Up Or Repeat Completed 06/29/2019 86454 Echography Uterus Limited Completed 05/30/2019 01460 Echography Uterus Follow-Up Or Repeat Completed 04/27/2019 43664 Nuchal Translucency Ultrasound /First Gestation Completed Medical Devices Description No Information Available Encounters Type Date Location Provider Dx Diagnosis Office Visit 04/27/2019 [facility] Alesha Maldonado, O07.4 Failed attempted 11:30a termination of w/o complication Assessments Date Code Description Provider 08/25/2019 O44.42 Low lying placenta NOS or without Alesha Maldonado MD hemorrhage, second trimester 08/25/2019 O44.42 Low lying placenta NOS or without Ultrasounds hemorrhage, second trimester 08/25/2019 Z34.83 Encounter for supervision of other normal Alesha Maldonado MD , third trimester 08/25/2019 Z36.9 Encounter for screening, Laboratory unspecified 08/01/2019 Z34.83 Encounter for supervision of other normal Lauren Cabrera MD , third trimester 06/29/2019 Z34.82 Encounter for supervision of other normal Rickey Galindo JR, DO , second trimester 06/29/2019 O34.211 Maternal care for low transverse scar from Rickey Galindo JR, DO previous delivery 06/29/2019 Z34.82 Encounter for supervision of other normal Ultrasounds , second trimester 05/30/2019 Z34.82 Encounter for supervision of other normal Rickey Mateo BATRES , DO , second trimester 05/30/2019 O34.211 Maternal care for low transverse scar from Rickey Galindo JR, DO previous delivery 05/30/2019 Z34.82 Encounter [...] Shad Bowles M.D. Plan of Treatment Future Appointment(s):09/29/2019 9:00 am - Kiarra Patterson MD at [facility]12/2019 8:30 am - Ultrasounds at [facility]04/27/2019 - Alesha Maldonado MDO07.4 Failed attempted termination of without complicationComments: Will do NIPT today. Has new ob visit [...] s, symptoms are persistent and daily [address] [address] [phone] Center Echogenic Bowel, on USN NIPT normal. MSAFP and CMV Closed 06/19/[address] [place] [address] [phone]
--- OUTSIDE RECORDS SUMMARY | 2019-09-08 13:16 | XMS REPORT | Continuity of Care Document ---
:1985 External Reference #:[id number] Author Name Laboratory (transmitted by agent of provider Valorie Eaton) Address [address] [place] [address] Care Team Providers Name Role Phone Rachel Reddy PSYCHIATRIC NP - Family Care Team Information Hourly Caregiver [facility] Care Team Information Hourly Caregiver [phone] Problems Active Problems Provider Date Cervical intraepithelial [...] CPT Code Status Date Vaccine Lot # [id number] Given 08/25/2019 Tetnus, Diptheria Toxoids And Acellular Pertussis, 2KK23 PT > 7Yrs Old Vital Signs Date Vital Result Comment 05/04/2019 10:57am BP Systolic 124 mmHg BP Diastolic 68 mmHg Height 61 inches 5'1" Weight 151.00 lb BMI (Body Mass Index) 28.5 kg/m2 Last Menstrual Period 3950826 3 Parity 1 04/27/2019 10:58am Height 61 inches 5'1" Weight 151.00 lb BMI (Body Mass Index) 28.5 kg/m2 Last Menstrual Period 3944016 3 Parity 1 Results Test Acquired Date Facility Test Result H/L Range Note Laboratory test 08/31/2019 [facility] Rubella <pending> [place] [address] Screen [phone] Laboratory test 08/25/2019 [facility] Glucose 1 HR 158 mg/dL Normal 70-160 1 [place] [address] Post Prandial [phone] CBC With No 08/25/2019 [facility] White Blood 11.3 High 3.5- 10.8 [place] [address] Count 10^3/uL [phone] Red Blood Count 3.44 10^6/uL Low 3.70-4.87 Hemoglobin 9.9 g/dL Low 12.0-16.0 Hematocrit 30 % Low 35-47 Mean Corpuscular Volume 87 fL Normal 80-97 Mean Corpuscular Hemoglobin 29 pg Normal 27-31 Mean Corpuscular HGB Conc 33 g/dL Normal 31-36 Red Cell Distribution Width 14 % Normal 10-15 Platelet Count 263 10^3/uL Normal 150-450 Mean Platelet Volume 8.7 fL Normal 7.4-10.4 GC/Chlamydia Dna 08/01/2019 [facility] GCC Disclaimer (SEE NOTE) 2 [place] [address] [phone] Chlamydia trachomatis Dang Negative Negative Neisseria gonorrhoeae (GC) Dang Negative Negative Drug Screen 08/01/2019 [facility] Urine None Detected None [place] [address] Hydrocodone Clinic [phone] Screen Urine Oxycodone Screen None Detected None [...] Urine Phencyclidine Screen None Detected None Detect 3 Urine Cocaine Screen None Detected None Detect CMV 05/30/2019 [facility] Cytomegalovirus Positive Abnormal Negative 4 Igg/[place] [address] IgG Antibody [phone] Cytomegalovirus IgM Antibody Negative Negative Afp,Screen 05/30/2019 [facility] Results Summary Normal risk Maternal [place], [place] [address] [phone] Neural Tube Defect Estimate Collection Date 05/30/19 [...] by U/S Scan 11/12/19 Physician Phone Number [phone] GA On Collection by U/S SEE BELOW wk,d 5 GA Used In Risk Estimate Scan estimate Afp 71.7 ng/mL Afp MoM 2.04 MoM <2.50 Interpretation See Comment 6 Additional Comments See Comment 7 Recommended Follow Up None. General Test Information See Comment 8 HIV 1&2 p24 05/30/2019 [facility] HIV 4th Non[place] [address] Generation [phone] Lead 05/30/2019 [facility] Lead,Venous, B < 1.0 g/dL 0.0- 4.9 9 [place] [address] [phone] Venous/Capillary Venous Submitting Laboratory Phone [phone] Type And Screen 05/30/2019 [facility] Patient [place] [address] [phone] Antibody Screen NEGATIVE CBC With No 05/30/2019 [facility] White Blood 9.5 10^3/uL Normal 3.5-10.8 [place] [address] Count [phone] Red Blood Count 3.63 10^6/uL Low 3.70-4.87 Hemoglobin 12.1 g/dL Normal 12.0-16.0 Hematocrit 34 % Low 35-47 Mean Corpuscular Volume 93 fL Normal 80-97 Mean Corpuscular Hemoglobin 33 pg High 27-31 Mean Corpuscular HGB Conc 36 g/dL Normal 31-36 Red Cell Distribution Width 12 % Normal 10-15 Platelet Count 224 10^3/uL Normal 150-450 Mean Platelet Volume 9.6 fL Normal 7.4-10.4 PNL No 05/30/2019 [facility] Rubella Screen Equivocal Immune 11 [place] [address] [phone] Hemoglobin A1c 4.8 % Normal 4.0-5.6 12 Hepatitis B Surface Ag Nonreactive Nonreactive 13 Syphillis Igg W/Reflex RPR Negative Negative 14 Urine Culture And 05/04/2019 [facility] Urine Culture SEE RESULT 15 [place] [address] BELOW [phone] Chromosomes 13, 04/27/2019 [facility] [facility] Chromosome 13 Negative Normal 16 18, 21 + Sex Aneuploidy Chromosome Chromosome 18 Aneuploidy Negative Normal 17 Chromosome 21 Aneuploidy Negative Normal 18 Sex Chromosome Analysis Male Normal 19 PDF Report SEE IMAGE Laboratory test 03/20/2019 [facility] HCG 27494.00 mIU /mL 20 [place] [address] [phone] Laboratory test 03/17/2019 [facility] HCG 58158.00 mIU /mL [address] [place] [address] [phone] 1 [id number] 2 As with all diagnostic procedures, the laboratory results obtained should be used in conjunction with other clinical information available to the physician, including confirmation by another method, as applicable. 3 The specimen was tested at the listed cutoffs: Drug Class Test level (ng/mL) Hydrocodone 300 Oxycodone 100 Fentanyl 1 Methadone 150 Buprenorphine 5 Amphetamines 500 Barbiturates 200 Benzodiazepines 200 Cocaine 150 Cannabinoids 50 Opiates 300 PCP 25 Specimen was received without chain of custody. Results should be used for medical purposes only. 4 Test Performed by: [address] [address] Custom Stock Maker: Brett Ramires M.D. Ph.D.; CLIA# [id number] RESULT: 16,2 6 RESULT: Screen negative for neural tube defects. 7 RESULT: Reviewed by Ismael Coyne M.D. 8 This screening provides an estimation of risk, [...] developed and its performance characteristics determined by [facility] in a manner consistent with CLIA requirements. This test has not been cleared or approved by the U.S. Food and Drug Administration. Test Performed by: [place] [address] Custom Stock Maker: Brett Ramires M.D. Ph.D.; CLIA# [id number] 9 ADDITIONAL INFORMATION Testing performed by Inductively Coupled Plasma-Mass Spectrometry (ICP-MS). This test was developed and its performance characteristics determined by [facility] in a manner consistent with CLIA requirements. This test has not been cleared or approved by the U.S. Food and Drug Administration. 10 Test Performed by: [place] [address] Custom Stock Maker: Brett Rmaires M.D. Ph.D.; CLIA# [id number] 11 [id number] 12 Therapeutic target for the treatment of diabetes mellitus patients is <7% HBA1C, and in selective patients <6.0%. Please refer to [place] [employer] diabetic care guidelines for further information. 13 [id number] 14 [id number] 15 SEE RESULT BELOW Name: REBEKAH CAO : [address]: Zuleima Barbosa [facility] Acct: [id number] Unit: [id number] AGE: 34 Location: [facility] Re05/04/19 SEX: F Status: REG REF SPEC: [id number] BRANDEN: 05/04/19-[address]: Zuleima Barbosa [facility] REQ: [id number] RECD: 05/04/19 STATUS: COMP _ SOURCE: URINE SPDESC: ORDERED: Urine Culture COMMENTS: [id number] Urine Source: Random Procedure Result Reported Site Urine Culture Final 05/05/19- 1413 ML No Growth (<1,000 CFU/mL) * ML - Main Lab . END OF REPORT DEPARTMENT OF PATHOLOGY, [address] [place] [address] Merrick Dewitt M.D. Director [facility] # [id number] 16 No aneuploidy detected. 17 No aneuploidy detected. 18 No aneuploidy detected. 19 Male: No aneuploidy detected. 20 <5.0 Negative 5.0 - 25.0 Indeterminate (Repeat testing recommended after 72 hours) >25.0 Positive Perimenopausal women can display HCG levels of up to 20 mIU/mL 21 <5.0 Negative 5.0 - 25.0 Indeterminate (Repeat testing recommended after 72 hours) >25.0 Positive Perimenopausal women can display HCG levels of up to 20 mIU/mL Procedures Date Code Description Status 08/25/2019 55636 Echography Uterus Follow-Up Or Repeat Completed 06/29/2019 55024 Echography Uterus Limited Completed 05/30/2019 16314 Echography Uterus Follow-Up Or Repeat Completed 04/27/2019 15269 Nuchal Translucency Ultrasound /First Gestation Completed Medical Devices Description No Information Available Encounters Type Date Location Provider Dx Diagnosis Office Visit 04/27/2019 [facility] Alesha Maldonado, O07.4 Failed attempted 11:30a termination of w/o complication Assessments Date Code Description Provider 08/31/2019 Z36.9 Encounter for screening, Laboratory unspecified 08/25/2019 Z23 Encounter for immunization Shad Bowles M.D. 08/25/2019 O44.42 Low lying placenta NOS [...] for supervision of other normal Rickey Galindo JR , DO , second trimester 05/30/2019 [...] 3:20 pm - Shad Bowles M.D. at [facility]09/29/2019 9:00 am - Kiarra Patterson MD at [facility]09/29/2019 8:30 am - Ultrasounds at [facility]04/27/2019 - Alesha Maldonado MDO07.4 Failed attempted termination [...] Description No Information Available Referrals Refer to Reason for Referral Status Appt Date Nannette Benitez pt reports palpitations and heart skippng a beat 20 Closed weeks s, symptoms are persistent and daily [address] [facility] [address] [phone] Center Echogenic Bowel, on USN NIPT normal. MSAFP and CMV Closed 06/19/[address] [place] [address] [phone]
--- OUTSIDE RECORDS SUMMARY | 2019-09-08 13:16 | XMS REPORT | Continuity of Care Document ---
:1985 External Reference #:[id number] Author Name Catracho Gudino DO FACC (transmitted by agent of provider Latesha Thomson ) Address [address] [place] [address] Care Team Providers Name Role Phone Eliceo Coates MD - Family Medicine Care Team Information Back Tender Cylinder [phone] Selene Chau MD - Internal Care Team Information Back Tender Cylinder [phone] Medicine Problems Active Problems Provider Date Immunological Findings Nonspecified Other & Stas Mandujano M.D. Onset: 2012 Unspecified Chronic pain syndrome Stas Mandujano M.D. Onset: 05/10/2013 Social History Type Date Description Comments Sex Unknown ETOH Use Denies alcohol use Smoking Vaping x 6 years Quit 01/2019 Recreational Drug Use Denies Drug Use Exercise Type/Frequency Exercises regularly yoga 3-4 times weekly Allergies, Adverse Reactions, Alerts Active Allergies Reaction Severity Comments Date Penicillins 05/10/2013 Sulfur 05/10/2013 Morphine 05/10/2013 Tramadol 01/17/2016 Codeine 01/17/2016 Imitrex anaphylactic reaction 07/19/2019 Medications Active Medications SIG Qnty Indications Ordering Provider Date Lyrica 1 capsule by Unknown 100mg Capsules mouth four times daily Vitamin D3 Adult take two Unknown Gummies capsule/tablet 25mcg (1000 Ut) daily by mouth Chewtabs Magnesium 250 mg (4 soft Unknown gels) by mouth daily Adult 2 gummies by Unknown Gummy/Dha/Folic Acid mouth daily 0.4-25mg Chewtabs History Medications Immunizations Description No Information Available Vital Signs Date Vital Result Comment 07/19/2019 4:07pm Height 61.5 inches 5'1.50" Weight 169.50 lb with shoes Heart Rate 84 /min BP Systolic 110 mmHg Ra, reg BP Diastolic 62 mmHg Ra, reg BP Systolic Sitting 110 mmHg LA, reg BP Diastolic Sitting 68 mmHg LA, reg BP Systolic Standing 112 mmHg Ra, reg BP Diastolic Standing 68 mmHg Ra, reg BMI (Body Mass Index) 31.5 kg/m2 02/10/2016 10:21am Height 61.5 inches 5'1.50" Weight 130.00 lb BP Systolic Sitting 100 mmHg BP Diastolic Sitting 60 mmHg BMI (Body Mass Index) 24.2 kg/m2 Results Description No Information Available Procedures Date Code Description Status 07/19/2019 59120 EKG Tracing & Interpretation Completed Medical Devices Description No Information Available Encounters Type Date Location Provider Dx Diagnosis Office Visit 07/19/2019 [facility] Gudino, R00.2 Palpitations 4:40p 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 These are common causes of benign palpitations. We willtry to confirm this with a heart monitor during symptoms. We will also check for lab abnormalities or heart muscle issues. You can try cutting out caffeine completely to see that helps.If they bother you a lot we can try a beta -blockerThese may resolve after deliveryFollow up:PRNR60.0 Localized lsazcH23.42 Hypomagnesemia Functional Status Description No Information Available Mental Status Description No Information Available Referrals Description No Information Available
--- OUTSIDE RECORDS SUMMARY | 2019-09-08 13:16 | XMS REPORT | Continuity of Care Document ---
:1985 External Reference #:[id number] Author Name Lauren Cabrera MD (transmitted by agent of provider Venra Ramírez) Address [address] [place] [address] Care Team Providers Name Role Phone BarryYarelisRachel [facility] - Family Care Team Information Hospital Sales Representative Problems Active Problems Provider Date Cervical intraepithelial [...] -MG 1600mg daily Unknown Supplement 400mg Capsules Medications Administered in Office Medication SIG Qnty [...] MD 09/11/2011 Acetate /Depo Provera/Contraception Injection Immunizations Description No Information Available Vital Signs Date Vital Result Comment 05/04/2019 10:57am BP Systolic 124 mmHg BP Diastolic 68 mmHg Height 61 inches 5'1" Weight 151.00 lb BMI (Body Mass Index) 28.5 kg/m2 Last Menstrual Period 9579317 3 Parity 1 04/27/2019 10:58am Height 61 inches 5'1" Weight 151.00 lb BMI (Body Mass Index) 28.5 kg/m2 Last Menstrual Period 0577649 3 Parity 1 Results Test Acquired Date Facility Test Result H/L Range Note PNL No 05/30/2019 [facility] Rubella Screen Equivocal Immune 1 [place] [address] [phone] Hemoglobin A1c 4.8 % Normal 4.0-5.6 2 Hepatitis B Surface Ag Nonreactive Nonreactive 3 Syphillis Igg W/Reflex RPR Negative Negative 4 CBC With No 05/30/2019 [facility] White Blood 9.5 10^3/uL Normal 3.5-10.8 [place] [address] Count [phone] Red Blood Count 3.63 10^6/uL Low 3.70-4.87 Hemoglobin 12.1 g/dL Normal 12.0-16.0 Hematocrit 34 % Low 35-47 Mean Corpuscular Volume 93 fL Normal 80-97 Mean Corpuscular Hemoglobin 33 pg High 27-31 Mean Corpuscular HGB Conc 36 g/dL Normal 31-36 Red Cell Distribution Width 12 % Normal 10-15 Platelet Count 224 10^3/uL Normal 150-450 Mean Platelet Volume 9.6 fL Normal 7.4-10.4 Type And Screen 05/30/2019 [facility] Patient [place] [address] [phone] Antibody Screen NEGATIVE Lead 05/30/2019 [facility] Lead,Venous, B < 1.0 g/dL 0.0- 4.9 5 [place] [address] [phone] Venous/Capillary Venous Submitting Laboratory Phone [phone] HIV 1&2 p24 05/30/2019 [facility] HIV 4th Non[place] [address] Generation [phone] Afp,Screen 05/30/2019 [facility] Results [place] [address] Summary [phone] Neural Tube Defect Estimate Collection Date 05/30/19 [...] by U/S Scan 11/12/19 Physician Phone Number [phone] GA On Collection by U/S SEE BELOW wk,d 7 GA Used In Risk Estimate Scan estimate Afp 71.7 ng/mL Afp MoM 2.04 MoM <2.50 Interpretation See Comment 8 Additional Comments See Comment 9 Recommended Follow Up None. General Test Information See Comment 10 CMV 05/30/2019 [facility] Cytomegalovirus Positive Abnormal Negative 11 Igg/[place] [address] IgG Antibody [phone] Cytomegalovirus IgM Antibody Negative Negative Urine Culture And 05/04/2019 [facility] Urine Culture SEE RESULT 12 [place] [address] BELOW [phone] Chromosomes 13, 04/27/2019 [employer] Chromosome 13 Negative Normal 13 18, 21 + Sex Aneuploidy Chromosome Chromosome 18 Aneuploidy Negative Normal 14 Chromosome 21 Aneuploidy Negative Normal 15 Sex Chromosome Analysis Male Normal 16 PDF Report SEE IMAGE Laboratory test 03/20/2019 [facility] HCG 13552.00 mIU /mL 17 finding [place] [address] [phone] Laboratory test 03/17/2019 [facility] HCG 53111.00 mIU /mL 18 finding [place] [address] [phone] 1 [id number] 2 Therapeutic target for the treatment of diabetes mellitus patients is <7% HBA1C, and in selective patients <6.0%. Please refer to [place] Diabetes Association diabetic care guidelines for further information. 3 [id number] 4 [id number] 5 ADDITIONAL INFORMATION Testing performed by Inductively Coupled Plasma-Mass Spectrometry (ICP-MS). This test was developed and its performance characteristics determined by [facility] in a manner consistent with CLIA requirements. This test has not been cleared or approved by the U.S. Food and Drug Administration. 6 Test Performed by: [facility] [address] [place] [address] Change Over: Brett Ramires M.D. Ph.D.; CLIA# [id number] 7 RESULT: 16,2 8 RESULT: Screen negative [...] developed and its performance characteristics determined by [facility] in a manner consistent with CLIA requirements. This test has not been cleared or approved by the U.S. Food and Drug Administration. Test Performed by: [facility] [place] [address] Change Over: Brett Ramires M.D. Ph.D.; CLIA# [id number] 11 Test Performed by: [facility] [place] [address] Change Over: Brett Ramires M.D. Ph.D.; CLIA# [id number] 12 SEE RESULT BELOW Name: REBEKAH ANDRADE : [address]: Zuleima Barbosa CNM Acct: [id number] Unit: [id number] AGE: 34 Location: [facility] Re05/04/19 SEX: F Status: REG REF SPEC: [id number] BRANDEN: 05/04/19-[address]: Zuleima Barbosa CNM REQ: [id number] RECD: 05/04/19 STATUS: COMP _ SOURCE: URINE [facility]: ORDERED: Urine Culture COMMENTS: [id number] Urine Source: Random Procedure Result Reported Site Urine Culture Final 05/05/19- 1413 ML No Growth (<1,000 CFU/mL) * ML - Main Lab . END OF REPORT DEPARTMENT OF PATHOLOGY, [address] [place] [address] Merrick Dewitt M.D. Director [facility] # [id number] 13 No aneuploidy detected. 14 No aneuploidy detected. 15 No aneuploidy detected. 16 Male: No aneuploidy detected. 17 <5.0 Negative 5.0 - 25.0 Indeterminate (Repeat testing recommended after 72 hours) >25.0 Positive Perimenopausal women can display HCG levels of up to 20 mIU/mL 18 <5.0 Negative 5.0 - 25.0 Indeterminate (Repeat testing recommended after 72 hours) >25.0 Positive Perimenopausal women can display HCG levels of up to 20 mIU/mL Procedures Date Code Description Status 06/29/2019 97970 Echography Uterus Limited Completed 05/30/2019 37773 Echography Uterus Follow-Up Or Repeat Completed 04/27/2019 94567 Nuchal Translucency Ultrasound /First Gestation Completed Medical Devices Description No Information Available Encounters Type Date Location Provider Dx Diagnosis Office Visit 04/27/2019 [facility] Alesha Maldonado, O07.4 Failed attempted 11:30a termination of w/o complication Assessments Date Code Description Provider 06/29/2019 Z34.82 Encounter for supervision of other normal Rickey Galindo JR , DO , second trimester 06/29/2019 [...] disease Shad Bowles M.D. Plan of Treatment 04/27/2019 - Alesha Maldonado MDO07.4 Failed attempted termination [...] s, symptoms are persistent and daily [address] [facility] [address] [phone] Center Echogenic Bowel, on USN NIPT normal. MSAFP and CMV Closed 06/19/2019 [address] collected [address] [place] [address] [phone]
--- OUTSIDE RECORDS SUMMARY | 2019-09-08 13:16 | XMS REPORT | Continuity of Care Document ---
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 Problems Active Problems Provider Date Cervical intraepithelial [...] CPT Code Status Date Vaccine Lot # [id number] Given 08/25/2019 Tetnus, Diptheria Toxoids And Acellular Pertussis, [id number] PT > 7Yrs Old Vital Signs Date Vital Result Comment 05/04/2019 10:57am BP Systolic 124 mmHg BP Diastolic 68 mmHg Height 61 inches 5'1" Weight 151.00 lb BMI (Body Mass Index) 28.5 kg/m2 Last Menstrual Period 2551278 3 Parity 1 04/27/2019 10:58am Height 61 inches 5'1" Weight 151.00 lb BMI (Body Mass Index) 28.5 kg/m2 Last Menstrual Period 1839315 3 Parity 1 Results Test Acquired Date Facility Test Result H/L Range Note Laboratory test 08/25/2019 [facility] Glucose 1 HR <pending> [place] [address] Post Prandial [phone] GC/Chlamydia Dna 08/01/2019 [facility] GCCHL (SEE NOTE) 1 [place] [address] Disclaimer [phone] Chlamydia trachomatis Dang Negative Negative Neisseria gonorrhoeae (GC) Dang Negative Negative Drug Screen 08/01/2019 [facility] Urine None Detected [place] [address] Hydro[facility] Clinic [phone] Screen Urine Oxycodone Screen None Detected None [...] Screen None Detected None Detect CMV 05/30/2019 [facility] Cytomegalovirus Positive Abnormal Negative 3 Igg/[place] [address] IgG Antibody [phone] Cytomegalovirus IgM Antibody Negative Negative Afp,Screen 05/30/2019 [facility] Results Summary [place] [address] [phone] Neural Tube Defect Estimate Collection Date 05/30/19 [...] by U/S Scan 11/12/19 Physician Phone Number [phone] GA On Collection by U/S SEE BELOW wk,d 4 GA Used In Risk Estimate Scan estimate Afp 71.7 ng/mL Afp MoM 2.04 MoM <2.50 Interpretation See Comment 5 Additional Comments See Comment 6 Recommended Follow Up None. General Test Information See Comment 7 HIV 1&2 p24 05/30/2019 [facility] HIV 4th Non[place] [address] Generation [phone] Lead 05/30/2019 [facility] Lead,Venous, B < 1.0 g/dL 0.0- 4.9 8 [place] [address] [phone] Venous/Capillary Venous Submitting Laboratory Phone [phone] Type And Screen 05/30/2019 [facility] Patient [place] [address] [phone] Antibody Screen NEGATIVE CBC With No 05/30/2019 [facility] White Blood 9.5 10^3/uL Normal 3.5-10.8 [place] [address] Count [phone] Red Blood Count 3.63 10^6/uL Low 3.70-4.87 Hemoglobin 12.1 g/dL Normal 12.0-16.0 Hematocrit 34 % Low 35-47 Mean Corpuscular Volume 93 fL Normal 80-97 Mean Corpuscular Hemoglobin 33 pg High 27-31 Mean Corpuscular HGB Conc 36 g/dL Normal 31-36 Red Cell Distribution Width 12 % Normal 10-15 Platelet Count 224 10^3/uL Normal 150-450 Mean Platelet Volume 9.6 fL Normal 7.4-10.4 PNL No 05/30/2019 [facility] Rubella Screen Equivocal Immune 10 [place] [address] [phone] Hemoglobin A1c 4.8 % Normal 4.0-5.6 11 Hepatitis B Surface Ag Nonreactive Nonreactive 12 Syphillis Igg W/Reflex RPR Negative Negative 13 Urine Culture And 05/04/2019 [facility] Urine Culture SEE RESULT 14 [place] [address] BELOW [phone] Chromosomes 13, 04/27/2019 [employer] Chromosome 13 Negative Normal 15 18, 21 + Sex Aneuploidy Chromosome Chromosome 18 Aneuploidy Negative Normal 16 Chromosome 21 Aneuploidy Negative Normal 17 Sex Chromosome Analysis Male Normal 18 PDF Report SEE IMAGE Laboratory test 03/20/2019 [facility] HCG 99403.00 mIU /mL 19 [place] [address] [phone] Laboratory test 03/17/2019 [facility] HCG 61255.00 mIU /mL 20 [place] [address] [phone] 1 As with all diagnostic procedures, the [...] medical purposes only. 3 Test Performed by: [facility] [address] Magnetic Locater: Brett Ramires M.D. Ph.D.; CLIA# [id number] RESULT: 16,2 5 RESULT: Screen negative [...] developed and its performance characteristics determined by [facility] in a manner consistent with CLIA requirements. This test has not been cleared or approved by the U.S. Food and Drug Administration. Test Performed by: [facility] [place] [address] Magnetic Locater: Brett Ramires M.D. Ph.D.; CLIA# [id number] 8 ADDITIONAL INFORMATION Testing performed by Inductively Coupled Plasma-Mass Spectrometry (ICP-MS). This test was developed and its performance characteristics determined by [facility] in a manner consistent with CLIA requirements. This test has not been cleared or approved by the U.S. Food and Drug Administration. 9 Test Performed by: [facility] - [address] [address] Magnetic Locater: Brett Ramires M.D. Ph.D.; CLIA# [id number] 10 [id number] 11 Therapeutic target for the treatment of diabetes mellitus patients is <7% HBA1C, and in selective patients <6.0%. Please refer to [place] Diabetes Association diabetic care guidelines for further information. 12 [id number] 13 [id number] 14 SEE RESULT BELOW Name: REBEKAH CAO : [address]: Zuleima Barbosa CNM Acct: [id number] Unit: [id number] AGE: 34 Location: [facility] Re05/04/19 SEX: F Status: REG REF SPEC: [id number] BRANDEN: 05/04/19-[address]: Zuleima Barbosa CNM REQ: [id number] RECD: 05/04/19 STATUS: COMP _ SOURCE: URINE SPDESC: ORDERED: Urine Culture COMMENTS: [id number] Urine Source: Random Procedure Result Reported Site Urine Culture Final 05/05/19- 1413 ML No Growth (<1,000 CFU/mL) * ML - Main Lab . END OF REPORT DEPARTMENT OF PATHOLOGY, [address] [place] [address] Merrick Dewitt M.D. Director [facility] # [id number] 15 No aneuploidy detected. 16 No aneuploidy [...] mIU/mL Procedures Date Code Description Status 08/25/2019 01887 Echography Uterus Follow-Up Or Repeat Completed 06/29/2019 58507 Echography Uterus Limited Completed 05/30/2019 09714 Echography Uterus Follow-Up Or Repeat Completed 04/27/2019 37245 Nuchal Translucency Ultrasound /First Gestation Completed Medical Devices Description No Information Available Encounters Type Date Location Provider Dx Diagnosis Office Visit 04/27/2019 [facility] Alesha Maldonado, O07.4 Failed attempted 11:30a termination of w/o complication Assessments Date Code Description Provider 08/25/2019 Z23 Encounter for immunization Shad Bowles [...] supervision of other normal Rickey Galindo JR DO , second trimester 06/29/2019 O34.211 Maternal care for low transverse scar from Rickey Galindo JR DO previous delivery 06/29/2019 Z34.82 Encounter for supervision of other normal Ultrasounds , second trimester 05/30/2019 Z34.82 Encounter for supervision of other normal Rickey Galindo JR DO , second trimester 05/30/2019 O34.211 Maternal care for low transverse scar from Rickey Galindo JR DO previous delivery 05/30/2019 Z34.82 Encounter for supervision of other normal Ultrasounds , second trimester 05/04/2019 Z36.9 Encounter for screening, Zuleima Barbosa CNM unspecified 04/27/2019 Z36.3 Encounter for screening for Shad Bowles M.D. 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 Gelber, M.D. Plan of Treatment Future Appointment(s):09/29/2019 9:00 am - Kiarra Patterson MD at [facility]12/2019 8:30 am - Ultrasounds at [facility]04/27/2019 - Alesha Maldonado MDO07.4 Failed attempted [...] s, symptoms are persistent and daily [address] [place] [address] [phone] Center Echogenic Bowel, on USN NIPT normal. MSAFP and CMV Closed 06/19/[address] [place] [address] [phone]
--- OUTSIDE RECORDS SUMMARY | 2019-09-08 13:16 | XMS REPORT | Continuity of Care Document ---
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 Glucose 1 HR <pending> [place] [address] Post Prandial [phone] GC/Chlamydia Dna 08/01/2019 [facility] GCCHL (SEE NOTE) 1 [place] [address] Disclaimer [phone] Chlamydia trachomatis Dang Negative Negative Neisseria gonorrhoeae (GC) Dang Negative Negative Drug Screen 08/01/2019 [facility] Urine None Detected None [place] [address] Hydrocodone Clinic [phone] Screen Urine Oxycodone Screen None Detected None [...] Screen None Detected None Detect CMV 05/30/2019 [facility] Cytomegalovirus Positive Abnormal Negative 3 Igg/[place] [address] IgG Antibody [phone] Cytomegalovirus IgM Antibody Negative Negative Afp,Screen 05/30/2019 [facility] Results Summary [place] [address] [phone] Neural Tube Defect Estimate Collection Date 05/30/19 [...] by U/S Scan 11/12/19 Physician Phone Number [phone] [place] On Collection by U/S SEE BELOW wk,d 4 GA Used In Risk Estimate Scan estimate Afp 71.7 ng/mL Afp MoM 2.04 MoM <2.50 Interpretation See Comment 5 Additional Comments See Comment 6 Recommended Follow Up None. General Test Information See Comment 7 HIV 1&2 p24 05/30/2019 [facility] HIV 4th Nonreactive [place] [address] Generation [phone] Lead 05/30/2019 [facility] Lead,Venous, B < 1.0 g/dL 0.0- 4.9 8 [place] [address] [phone] Venous/Capillary Venous Submitting Laboratory Phone [phone] Type And Screen 05/30/2019 [facility] Patient Blood [place] [address] [phone] Antibody Screen NEGATIVE CBC With No 05/30/2019 [facility] White Blood 9.5 10^3/uL Normal 3.5-10.8 [place] [address] Count [phone] Red Blood Count 3.63 10^6/uL Low 3.70-4.87 Hemoglobin 12.1 g/dL Normal 12.0-16.0 Hematocrit 34 % Low 35-47 Mean Corpuscular Volume 93 fL Normal 80-97 Mean Corpuscular Hemoglobin 33 pg High 27-31 Mean Corpuscular HGB Conc 36 g/dL Normal 31-36 Red Cell Distribution Width 12 % Normal 10-15 Platelet Count 224 10^3/uL Normal 150-450 Mean Platelet Volume 9.6 fL Normal 7.4-10.4 PNL No 05/30/2019 [facility] Rubella Screen Equivocal Immune 10 [place] [address] [phone] Hemoglobin A1c 4.8 % Normal 4.0-5.6 11 Hepatitis B Surface Ag Nonreactive Nonreactive 12 Syphillis Igg W/Reflex RPR Negative Negative 13 Urine Culture And 05/04/2019 [facility] Urine Culture SEE RESULT 14 [place] [address] BELOW [phone] Chromosomes 13, 04/27/2019 [employer] Chromosome 13 Negative Normal 15 18, 21 + Sex Aneuploidy Chromosome Chromosome 18 Aneuploidy Negative Normal 16 Chromosome 21 Aneuploidy Negative Normal 17 Sex Chromosome Analysis Male Normal 18 PDF Report SEE IMAGE Laboratory test 03/20/2019 [facility] HCG 68725.00 mIU /mL 19 [place] [address] [phone] Laboratory test 03/17/2019 [facility] HCG 86059.00 mIU /mL 20 [place] [address] [phone] 1 As with all diagnostic procedures, the [...] medical purposes only. 3 Test Performed by: [facility] [address] Ground Wood Supervisor: Brett Ramires M.D. Ph.D.; CLIA# [id number] RESULT: 16,2 5 RESULT: Screen negative [...] developed and its performance characteristics determined by [facility] in a manner consistent with CLIA requirements. This test has not been cleared or approved by the U.S. Food and Drug Administration. Test Performed by: [facility] [place] [address] Ground [employer] Supervisor: Brett Ramires M.D. Ph.D.; CLIA# [id number] 8 ADDITIONAL INFORMATION Testing performed by Inductively Coupled Plasma-Mass Spectrometry (ICP-MS). This test was developed and its performance characteristics determined by [facility] in a manner consistent with CLIA requirements. This test has not been cleared or approved by the U.S. Food and Drug Administration. 9 Test Performed by: [facility] [address] [place] [address] Ground [employer] Supervisor: Brett Ramires M.D. Ph.D.; [facility]# [id number] 10 [id number] 11 Therapeutic target for the treatment of diabetes mellitus patients is <7% HBA1C, and in selective patients <6.0%. Please refer to [place] Diabetes Association diabetic care guidelines for further information. 12 [id number] 13 [id number] 14 SEE RESULT BELOW Name: REBEKAH CAO : [address]: Zuleima CARVALHO Acct: [id number] Unit: [id number] AGE: 34 Location: [facility] Re05/04/19 SEX: F Status: REG REF SPEC: [id number] BRANDEN: 05/04/19-[address]: Zuleima CARVALHO REQ: [id number] RECD: 05/04/19 STATUS: COMP _ SOURCE: URINE SPDESC: ORDERED: Urine Culture COMMENTS: [id number] Urine Source: Random Procedure Result Reported Site Urine Culture Final 05/05/19- 1413 ML No Growth (<1,000 CFU/mL) * ML - Main Lab . END OF REPORT DEPARTMENT OF PATHOLOGY, [address] [place] [address] Merrick Dewitt M.D. Director [facility] # [id number] 15 No aneuploidy detected. 16 No aneuploidy [...] mIU/mL Procedures Date Code Description Status 06/29/2019 84773 Echography Uterus Limited Completed 05/30/2019 91955 Echography Uterus Follow-Up Or Repeat Completed 04/27/2019 84548 Nuchal Translucency Ultrasound /First Gestation Completed Medical Devices Description No Information Available Encounters Type Date Location Provider Dx Diagnosis Office Visit 04/27/2019 [facility] Alesha Maldonado, O07.4 Failed attempted 11:30a termination of w/o complication Assessments Date Code Description Provider 08/25/2019 Z36.9 Encounter for screening, Laboratory unspecified 08/01/2019 Z34.83 Encounter for supervision of other normal Lauren Cabrera MD , third trimester 06/29/2019 Z34.82 Encounter for supervision of other normal Rickey Villalpandon , DO , second trimester 06/29/2019 O34.211 Maternal care for low transverse scar from Rickey Villalpandon , DO previous delivery 06/29/2019 Z34.82 Encounter for supervision of other normal Ultrasounds , second trimester 05/30/2019 Z34.82 Encounter for supervision of other normal Rickey Galindo JR , DO , second trimester 05/30/2019 O34.211 Maternal care for low transverse scar from Rickey Villalpandon , DO previous delivery 05/30/2019 Z34.82 Encounter for [...] weeks s, symptoms are persistent and daily [facility] [place] [address] [phone] Center Echogenic Bowel, on USN NIPT normal. MSAFP and CMV Closed 06/19/2019 [address] collected [address] [place] [address] [phone]
--- OUTSIDE RECORDS SUMMARY | 2019-09-08 13:16 | XMS REPORT | Continuity of Care Document ---
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 Glucose 1 HR <pending> [place] [address] Post Prandial [phone] GC/Chlamydia Dna 08/01/2019 [facility] [place] GCCHL (SEE NOTE) 1 [place] [address] Disclaimer [phone] Chlamydia trachomatis Dang Negative Negative Neisseria gonorrhoeae (GC) Dang Negative Negative Drug Screen 08/01/2019 [facility] Urine None Detected [place] [address] [facility] [phone] Screen Urine Oxycodone Screen None Detected None [...] None Detected None Detect CMV 05/30/2019 [facility] Cytomegalovirus Positive Abnormal Negative 3 Igg/[place] [address] IgG Antibody [phone] Cytomegalovirus IgM Antibody Negative Negative Afp,Screen 05/30/2019 [facility] [place] Results Summary [place] [address] [phone] Neural Tube Defect Estimate Collection Date 05/30/19 [...] by U/S Scan 11/12/19 Physician Phone Number [phone] GA On Collection by U/S SEE BELOW wk,d 4 GA Used In Risk Estimate Scan estimate Afp 71.7 ng/mL Afp MoM 2.04 MoM <2.50 Interpretation See Comment 5 Additional Comments See Comment 6 Recommended Follow Up None. General Test Information See Comment 7 HIV 1&2 p24 05/30/2019 [facility] [place] HIV 4th [place] [address] Generation [phone] Lead 05/30/2019 [facility] [place] Lead,Venous, B < 1.0 g/dL 0.0- 4.9 8 [place] [address] [phone] Venous/Capillary Venous Submitting Laboratory Phone [phone] Type And Screen 05/30/2019 [facility] [place] Patient [place] [address] [phone] Antibody Screen NEGATIVE CBC With No 05/30/2019 [facility] [place] White Blood 9.5 10^3/uL Normal 3.5-10.8 [place] [address] Count [phone] Red Blood Count 3.63 10^6/uL Low 3.70-4.87 [...] fL Normal 7.4-10.4 PNL No 05/30/2019 [facility] Rubella Screen Equivocal Immune 10 [place] [address] [phone] Hemoglobin A1c 4.8 % Normal 4.0-5.6 11 Hepatitis B Surface Ag Nonreactive Nonreactive 12 Syphillis Igg W/Reflex RPR Negative Negative 13 Urine Culture And 05/04/2019 [facility] Urine Culture SEE RESULT 14 [place] [address] BELOW [phone] Chromosomes 13, 04/27/2019 [employer] Chromosome 13 Negative Normal 15 18, 21 + Sex Aneuploidy Chromosome Chromosome 18 Aneuploidy Negative Normal 16 Chromosome 21 Aneuploidy Negative Normal 17 Sex Chromosome Analysis Male Normal 18 PDF Report SEE IMAGE Laboratory test 03/20/2019 [facility] [place] HCG 01889.00 mIU /mL 19 [place] [address] [phone] Laboratory test 03/17/2019 [facility] HCG 72167.00 mIU /mL 20 [place] [address] [phone] 1 As with all diagnostic procedures, the [...] medical purposes only. 3 Test Performed by: [facility] [place] [address] Monotype Caster: Brett Ramires M.D. Ph.D.; CLIA# [id number] 4 RESULT: 16,2 5 RESULT: Screen negative [...] developed and its performance characteristics determined by [facility] in a manner consistent with CLIA requirements. This test has not been cleared or approved by the U.S. Food and Drug Administration. Test Performed by: [facility] [employer] [place] [address] Monotype Caster: Brett Ramires M.D. Ph.D.; CLIA# [id number] 8 ADDITIONAL INFORMATION Testing performed by Inductively Coupled Plasma-Mass Spectrometry (ICP-MS). This test was developed and its performance characteristics determined by [facility] in a manner consistent with CLIA requirements. This test has not been cleared or approved by the U.S. Food and Drug Administration. 9 Test Performed by: [facility] [place] [address] [place] [address] Monotype Caster: Brett Ramires M.D. Ph.D.; [facility]# [id number] 10 [id number] 11 Therapeutic target for the treatment of diabetes mellitus patients is <7% HBA1C, and in selective patients <6.0%. Please refer to [place] [employer] diabetic care guidelines for further information. 12 [id number] 13 [id number] 14 SEE RESULT BELOW Name: REBEKAH CAO : [address]: Zuleima CARVALHO Acct: [id number] Unit: [id number] AGE: 34 Location: [facility] Re05/04/19 SEX: F Status: REG REF SPEC: [id number] BRANDEN: 05/04/19-[address]: Zuleima CARVALHO REQ: [id number] RECD: 05/04/19 STATUS: COMP _ SOURCE: URINE SPDESC: ORDERED: Urine Culture COMMENTS: [id number] Urine Source: Random Procedure Result Reported Site Urine Culture Final 05/05/19- 1413 ML No Growth (<1,000 CFU/mL) * ML - Main Lab . END OF REPORT DEPARTMENT OF PATHOLOGY, [address] [place] [address] Merrick Dewitt M.D. Director [facility] # [id number] 15 No aneuploidy detected. 16 No aneuploidy [...] mIU/mL Procedures Date Code Description Status 06/29/2019 86356 Echography Uterus Limited Completed 05/30/2019 82285 Echography Uterus Follow-Up Or Repeat Completed 04/27/2019 93422 Nuchal Translucency Ultrasound /First Gestation Completed Medical Devices Description No Information Available Encounters Type Date Location Provider Dx Diagnosis Office Visit 04/27/2019 [facility] Alesha Maldonado, O07.4 Failed attempted 11:30a termination of w/o complication Assessments Date Code Description Provider 08/25/2019 Z34.83 Encounter for supervision of other normal Alesha Maldonado MD , third trimester 08/25/2019 Z36.9 Encounter for screening, Laboratory unspecified 08/01/2019 Z34.83 Encounter for supervision of other normal Lauren Cabrera MD , third trimester 06/29/2019 Z34.82 Encounter for supervision of other normal Rickey Mateo , DO , second trimester 06/29/2019 O34.211 Maternal care for low transverse scar from Rickey Mateo , DO previous delivery 06/29/2019 Z34.82 Encounter for supervision of other normal Ultrasounds , second trimester 05/30/2019 Z34.82 Encounter for supervision of other normal Rickey Mateo , DO , second trimester 05/30/2019 O34.211 [facility] delivery 05/30/2019 Z34.82 Encounter [...] am - Kiarra Patterson MD at [facility]12/2019 8:30 am - Ultrasounds at [facility]04/27/2019 - Alesha Maldonado MDO07.4 Failed attempted [...] to Reason for Referral Status Appt Date [place], [place] pt reports palpitations and heart skippng a beat 20 Closed weeks s, symptoms are persistent and daily [address] [id number] [phone] Center Echogenic Bowel, on USN NIPT normal. MSAFP and CMV Closed 06/19/2019 being collected [address] [place] [address] [phone]
--- OUTSIDE RECORDS SUMMARY | 2019-09-08 13:16 | XMS REPORT | Continuity of Care Document ---
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 Problems Active Problems Provider Date Cervical intraepithelial [...] Mass Index) 28.5 kg/m2 Last Menstrual Period 3813875 3 Parity 1 04/27/2019 10:58am Height 61 inches 5'1" Weight 151.00 lb BMI (Body Mass Index) 28.5 kg/m2 Last Menstrual Period 2231363 3 Parity 1 Results Test Acquired Date Facility Test Result H/L Range Note GC/Chlamydia 08/01/2019 [facility] GCC Disclaimer (SEE NOTE) 1 [place] [address] [phone] Chlamydia trachomatis Dang Negative Negative Neisseria gonorrhoeae (GC) Dang Negative Negative Drug Screen 08/01/2019 [facility] Urine None Detected [place] [address] Hydrocodone [facility] [phone] Screen Urine Oxycodone Screen None Detected None [...] Urine Cocaine Screen None Detected None Detect PNL No 05/30/2019 [facility] Rubella Screen Equivocal Immune 3 [place] [address] [phone] Hemoglobin A1c 4.8 % Normal 4.0-5.6 4 Hepatitis B Surface Ag Nonreactive Nonreactive 5 Syphillis Igg W/Reflex RPR Negative Negative 6 CBC With No 05/30/2019 [facility] White Blood 9.5 10^3/uL Normal 3.5-10.8 [place] [address] Count [phone] Red Blood Count 3.63 10^6/uL Low 3.70-4.87 [...] fL Normal 7.4-10.4 Type And Screen 05/30/2019 [facility] Patient Blood [place] [address] [phone] Antibody Screen NEGATIVE Lead 05/30/2019 [facility] Lead,Venous, B < 1.0 g/dL 0.0- 4.9 7 [place] [address] [phone] Venous/Capillary Venous Submitting Laboratory Phone [phone] HIV 1&2 p24 05/30/2019 [facility] HIV 4th Nonreactive [place] [address] Generation [phone] Afp,Screen 05/30/2019 [facility] Results [place] [address] Summary [phone] Neural Tube Defect Estimate Collection Date 05/30/19 [...] by U/S Scan 11/12/19 Physician Phone Number [phone] GA On Collection by U/S SEE BELOW wk,d 9 GA Used In Risk Estimate Scan estimate Afp 71.7 ng/mL Afp MoM 2.04 MoM <2.50 Interpretation See Comment 10 Additional Comments See Comment 11 Recommended Follow Up None. General Test Information See Comment 12 CMV 05/30/2019 [facility] Cytomegalovirus Positive Abnormal Negative 13 Igg/[place] [address] IgG Antibody [phone] Cytomegalovirus IgM Antibody Negative Negative Urine Culture And 05/04/2019 [facility] Urine Culture SEE RESULT 14 [place] [address] BELOW [phone] Chromosomes 13, 04/27/2019 [employer] Chromosome 13 Negative Normal 15 18, 21 + Sex Aneuploidy Chromosome Chromosome 18 Aneuploidy Negative Normal 16 Chromosome 21 Aneuploidy Negative Normal 17 Sex Chromosome Analysis Male Normal 18 PDF Report SEE IMAGE Laboratory test 03/20/2019 [facility] HCG 98944.00 mIU /mL 19 [place] [address] [phone] Laboratory test 03/17/2019 [facility] HCG 60446.00 mIU /mL 20 [address] [place], [place] [address] [phone] 1 As with all diagnostic procedures, the [...] be used for medical purposes only. 3 [id number] 4 Therapeutic target for the treatment of diabetes mellitus patients is <7% HBA1C, and in selective patients <6.0%. Please refer to [place] [employer] diabetic care guidelines for further information. 5 [id number] 6 [id number] 7 ADDITIONAL INFORMATION Testing performed by Inductively Coupled Plasma-Mass Spectrometry (ICP-MS). This test was developed and its performance characteristics determined by [facility] in a manner consistent with CLIA requirements. This test has not been cleared or approved by the U.S. Food and Drug Administration. 8 Test Performed by: [place] [address] Mother'S Helper: Brett Ramires M.D. Ph.D.; CLIA# [id number] 9 RESULT: 16,2 10 RESULT: Screen negative for neural tube defects. 11 RESULT: Reviewed by Ismael Coyne M.D. 12 This screening provides an estimation of risk, [...] developed and its performance characteristics determined by [facility] in a manner consistent with CLIA requirements. This test has not been cleared or approved by the U.S. Food and Drug Administration. Test Performed by: [place] [address] Mother'S Helper: Brett Ramires M.D. Ph.D.; CLIA# [id number] 13 Test Performed by: [facility] [address] [place] [address] Mother'S Helper: Brett Ramires M.D. Ph.D.; CLIA# [id number] 14 SEE RESULT BELOW Name: REBEKAH ANDRADE : [address]: Zuleima CARVALHO Acct: [id number] Unit: [id number] AGE: 34 Location: [facility] Re05/04/19 SEX: F Status: REG REF SPEC: [id number] BRANDEN: 05/04/19-[address]: Zuleima CARVALHO REQ: [id number] RECD: 05/04/19 STATUS: COMP _ SOURCE: URINE SPDESC: ORDERED: Urine Culture COMMENTS: [id number] Urine Source: Random Procedure Result Reported Site Urine Culture Final 05/05/19- 1413 ML No Growth (<1,000 CFU/mL) * ML - Main Lab . END OF REPORT DEPARTMENT OF PATHOLOGY, [address] [place] [address] Merrick Dewitt M.D. Director [facility] # [id number] 15 No aneuploidy detected. 16 No aneuploidy [...] mIU/mL Procedures Date Code Description Status 06/29/2019 69719 Echography Uterus Limited Completed 05/30/2019 02590 Echography Uterus Follow-Up Or Repeat Completed 04/27/2019 92408 Nuchal Translucency Ultrasound /First Gestation Completed Medical Devices Description No Information Available Encounters Type Date Location Provider Dx Diagnosis Office Visit 04/27/2019 [facility] Alesha Maldonado, O07.4 Failed attempted 11:30a termination of w/o complication Assessments Date Code Description Provider 08/01/2019 Z34.83 Encounter for supervision of other normal Lauren Cabrera MD , third trimester 06/29/2019 Z34.82 Encounter for supervision of other normal iRckey Galindo JR , DO , second trimester 06/29/2019 O34.211 Maternal care for low transverse scar from Rickey Galindo JR, DO previous delivery 06/29/2019 Z34.82 Encounter for supervision of other normal Ultrasounds , second trimester 05/30/2019 Z34.82 Encounter for supervision of other normal Rickey Galindo JR , DO , second trimester 05/30/2019 O34.211 Maternal care for low transverse scar from Rickey Galinod JR, DO previous delivery 05/30/2019 Z34.82 Encounter [...] Shad Bowles M.D. Plan of Treatment Future Appointment(s):08/25/2019 10:15 am - Alesha Maldonado MD at [facility] 10:00 am - Ultrasounds at [facility]08/25/2019 9:30 am - Laboratory at [facility]04/27/2019 - Alesha Maldonado MDO07.4 Failed attempted termination [...] weeks s, symptoms are persistent and daily [facility] [address] [phone] Center Echogenic Bowel, on USN NIPT normal. MSAFP and CMV Closed 06/19/[address] [place] [address] [phone]
--- OUTSIDE RECORDS SUMMARY | 2019-09-08 13:16 | XMS REPORT | Continuity of Care Document ---
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 Onset: 03/06/2013 Social History Type Date Description Comments Sex Unknown Tobacco Use Start: Unknown End: Former Cigarette Smoker 03/05/18 first day at Unknown [facility] ETOH Use Rare states no alcohol use now. 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 code d Multivitamin Adult 1 by mouth Unknown every day Tablets Immunizations CPT Code Status Date Vaccine Lot # [id number] Given 02/10/2018 Influenza Vac, Quadrivalent, Slit Virus, Im [id number] Vital Signs Date Vital Result Comment 07/11/2019 3:15pm BP Systolic 100 mmHg BP Diastolic 60 mmHg Heart Rate 96 /min Body Temperature 98.1 F Respiratory Rate 16 /min Weight 163.00 lb 07/06/2019 6:18pm BP Systolic 108 mmHg BP Diastolic 66 mmHg Heart Rate 114 /min Body Temperature 98.6 F Respiratory Rate 16 /min Weight 164.00 lb Results Test Acquired Date Facility Test Result H/L Range Note Flu A&B (Fma) 07/11/2019 [facility] Influenza A negative (607)- - Influenza B negative Laboratory test finding 07/11/2019 [facility] medicine Quickstrep negative Negative (607)- - Procedures Description No Information Available Medical Devices Description No Information Available Encounters Type Date Location Provider Dx Diagnosis Office Visit 07/06/2019 6:15p Main Office Cassandra Le NP M79.7 Fibromyalgia Assessments Date Code Description Provider 07/11/2019 J06.9 Acute upper respiratory infection, Jaci Zhang-C unspecified 07/06/2019 M79.7 Fibromyalgia Cassandra Le NP Plan of Treatment 07/11/2019 - Jaci Zhang-CJ06.9 Acute upper respiratory infection, unspecifiedAllComments:Medication Management Patient Understands medications she 's taking? Yes No Are there Barriers to Adherence? Yes No Has the patient been asked about herbal supplements and therapies, and OTC meds? Yes No Care Plan1. Patient has been queried about patient's goals/ preferences and functional/lifestyle goals at relevant visits. If relevant, describe: na2. Treatment goals as explained to the patient: abovesx resolution 3. Are there barriers to meeting treatment goals? Yes No If Yes, please describe:4. Self-Management goals as described to the patient: Yes No this is likely a viral uri and ought to resolve with supportive rx : rest , fluids , vapor , tylenol f/u if no better or sx worsen / persist Functional Status Description No Information Available Mental Status Description No Information Available Referrals Description No Information Available
--- OUTSIDE RECORDS SUMMARY | 2019-09-08 13:16 | XMS REPORT | Continuity of Care Document ---
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 Problems Provider Date Cervical intraepithelial [...] CPT Code Status Date Vaccine Lot # [id number] Given 08/25/2019 Tetnus, Diptheria Toxoids And Acellular Pertussis, [id number] PT > 7Yrs Old Vital Signs Date Vital Result Comment 05/04/2019 10:57am BP Systolic 124 mmHg BP Diastolic 68 mmHg Height 61 inches 5'1" Weight 151.00 lb BMI (Body Mass Index) 28.5 kg/m2 Last Menstrual Period 0546885 3 Parity 1 04/27/2019 10:58am Height 61 inches 5'1" Weight 151.00 lb BMI (Body Mass Index) 28.5 kg/m2 Last Menstrual Period 7706614 3 Parity 1 Results Test Acquired Date Facility Test Result H/L Range Note Laboratory test 08/25/2019 [facility] Glucose 1 HR <pending> [place] [address] Post Prandial [phone] GC/Chlamydia Dna 08/01/2019 [facility] GCCHL (SEE NOTE) 1 [place] [address] Disclaimer [phone] Chlamydia trachomatis Dang Negative Negative Neisseria gonorrhoeae (GC) Dang Negative Negative Drug Screen 08/01/2019 [facility] Urine None Detected [place] [address] [facility] [phone] Screen Urine Oxycodone Screen None Detected None [...] Screen None Detected None Detect CMV 05/30/2019 [facility] Cytomegalovirus Positive Abnormal Negative 3 Igg/[place] [address] IgG Antibody [phone] Cytomegalovirus IgM Antibody Negative Negative Afp,Screen 05/30/2019 [facility] Results Summary [place] [address] [phone] Neural Tube Defect Estimate Collection Date 05/30/19 [...] by U/S Scan 11/12/19 Physician Phone Number [phone] GA On Collection by U/S SEE BELOW wk,d 4 GA Used In Risk Estimate Scan estimate Afp 71.7 ng/mL Afp MoM 2.04 MoM <2.50 Interpretation See Comment 5 Additional Comments See Comment 6 Recommended Follow Up None. General Test Information See Comment 7 HIV 1&2 p24 05/30/2019 [facility] HIV 4th [place] [address] Generation [phone] Lead 05/30/2019 [facility] Lead,Venous, B < 1.0 g/dL 0.0- 4.9 8 [place] [address] [phone] Venous/Capillary Venous Submitting Laboratory Phone [phone] Type And Screen 05/30/2019 [facility] Patient [place] [address] [phone] Antibody Screen NEGATIVE CBC With No 05/30/2019 [facility] White Blood 9.5 10^3/uL Normal 3.5-10.8 [place] [address] Count [phone] Red Blood Count 3.63 10^6/uL Low 3.70-4.87 Hemoglobin 12.1 g/dL Normal 12.0-16.0 Hematocrit 34 % Low 35-47 Mean Corpuscular Volume 93 fL Normal 80-97 Mean Corpuscular Hemoglobin 33 pg High 27-31 Mean Corpuscular HGB Conc 36 g/dL Normal 31-36 Red Cell Distribution Width 12 % Normal 10-15 Platelet Count 224 10^3/uL Normal 150-450 Mean Platelet Volume 9.6 fL Normal 7.4-10.4 PNL No 05/30/2019 [facility] Rubella Screen Equivocal Immune 10 [place] [address] [phone] Hemoglobin A1c 4.8 % Normal 4.0-5.6 11 Hepatitis B Surface Ag Nonreactive Nonreactive 12 Syphillis Igg W/Reflex RPR Negative Negative 13 Urine Culture And 05/04/2019 [facility] Urine Culture SEE RESULT 14 [place] [address] BELOW [phone] Chromosomes 13, 04/27/2019 [facility] Chromosome 13 Negative Normal 15 18, 21 + Sex Aneuploidy Chromosome Chromosome 18 Aneuploidy Negative Normal 16 Chromosome 21 Aneuploidy Negative Normal 17 Sex Chromosome Analysis Male Normal 18 PDF Report SEE IMAGE Laboratory test 03/20/2019 [facility] HCG 13633.00 mIU /mL 19 finding [place], [place] [address] [phone] Laboratory test 03/17/2019 [facility] HCG 40272.00 mIU /mL 20 [place] [address] [phone] 1 As with all diagnostic procedures, the [...] medical purposes only. 3 Test Performed by: [facility] [place] [address] Room Service Supervisor: Brett Ramires M.D. Ph.D.; CLIA# [id number] RESULT: 16,2 5 RESULT: Screen negative [...] developed and its performance characteristics determined by [facility] in a manner consistent with CLIA requirements. This test has not been cleared or approved by the U.S. Food and Drug Administration. Test Performed by: [facility] [place] [address] Room Service Supervisor: Brett Ramires M.D. Ph.D.; CLIA# [id number] 8 ADDITIONAL INFORMATION Testing performed by Inductively Coupled Plasma-Mass Spectrometry (ICP-MS). This test was developed and its performance characteristics determined by [facility] in a manner consistent with CLIA requirements. This test has not been cleared or approved by the U.S. Food and Drug Administration. 9 Test Performed by: [facility] [address] [place] [address] Room Service Supervisor: Brett Ramires M.D. Ph.D.; CLIA# [id number] 11 Therapeutic target for the treatment of diabetes mellitus patients is <7% HBA1C, and in selective patients <6.0%. Please refer to [place] [employer] diabetic care guidelines for further information. 12 [id number] SEE RESULT BELOW Name: REBEKAH CAO : [address]: Zuleima Barbosa CNM Acct: [id number] Unit: [id number] AGE: 34 Location: [facility] Re05/04/19 SEX: F Status: REG REF SPEC: [id number] BRANDEN: 05/04/19-[address]: Zuleima Barbosa CNM REQ: [id number] RECD: 05/04/19 STATUS: COMP _ SOURCE: URINE SPDESC: ORDERED: Urine Culture COMMENTS: [id number] Urine Source: Random Procedure Result Reported Site Urine Culture Final 05/05/19- 1413 ML No Growth (<1,000 CFU/mL) * ML - Main Lab . END OF REPORT DEPARTMENT OF PATHOLOGY, [address] [place] [address] Merrick Dewitt M.D. Director [facility] # [id number] 15 No aneuploidy detected. 16 No aneuploidy [...] mIU/mL Procedures Date Code Description Status 08/25/2019 99563 Echography Uterus Follow-Up Or Repeat Completed 06/29/2019 36429 Echography Uterus Limited Completed 05/30/2019 86915 Echography Uterus Follow-Up Or Repeat Completed 04/27/2019 98125 Nuchal Translucency Ultrasound /First Gestation Completed Medical Devices Description No Information Available Encounters Type Date Location Provider Dx Diagnosis Office Visit 04/27/2019 [facility] Office Alesha Maldonado, O07.4 Failed attempted 11:30a MD termination of w/o complication Assessments Date Code [...] Rickey Galindo JR, DO , second trimester 05/30/2019 O34.211 Maternal [...] 9:00 am - Kiarra Patterson MD at [facility]12/2019 8:30 am - Ultrasounds at [facility]04/27/2019 - Alesha Maldonado MDO07.4 Failed [...] s, symptoms are persistent and daily [address] [address] [phone] Center Echogenic Bowel, on USN NIPT normal. MSAFP and CMV Closed 06/19/[address] [place] [address] [phone]
== END 2019-09-08 13:38 | disposition home or self-care (01) ==
LOC: UCEAST 12:30
DX: O26.893 Other specified pregnancy related conditions, third trimester (principal); S46.912A Strain of unspecified muscle, fascia and tendon at shoulder and upper arm level, left arm, initial encounter; X50.0XXA Overexertion from strenuous movement or load, initial encounter; Y93.89 Activity, other specified; Y92.9 Unspecified place or not applicable; Y99.0 Civilian activity done for income or pay; Z3A.31 31 weeks gestation of pregnancy; Z88.5 Allergy status to narcotic agent; Z88.0 Allergy status to penicillin; Z88.2 Allergy status to sulfonamides; Z88.8 Allergy status to other drugs, medicaments and biological substances; Z91.040 Latex allergy status; Z87.891 Personal history of nicotine dependence
CPT/HCPCS: 99212; G0463